=== PATIENT | male | born 1960 | race African-American/Black ===

== ENCOUNTER 2019-05-28 12:54 | Emergency (ER) | payer MEDICARE, MEDICAID ==
[~2019-05-28] VITALS: Ht 172.7 cm; Wt 114.7 kg
[~2019-05-28 12:54] MED LIST: AMLO5TAB9 PO; CETI10TA17 PO; IBUP-1780 PO; MELO15TA39 PO; OXYC15TA79 PO; OXYC60TA7 PO; PANT40TA2 PO; SUCR1TAB36 PO
[2019-05-28] MEDS ORDERED: KETOROLAC 60 MG/2 ML VIAL IM ONE (13:30)
--- NOTE | 2019-05-28 13:37 | ED Lower Extremity ---
General Chief Complaint: Lower Extremity Stated Complaint: LT LEG PAIN - FELL ON ICE LAST WK Nursing Triage Note: Patient presents to the ED from Walk in clinic with c/o left thigh pain. States that he was chasing his dog last Thursday and slipped on the ice and snow causing him to do the splits. He reports that the pain is not being controlled with his regular pain medications and it is swollen. The walk in clinic sent the patient for further evaluation. Nursing Sepsis Screen: No Definite Risk History of Present Illness Date Seen by Provider: May 28, 2019 Time Seen by Provider: 13:10 Initial Comments 59-year-old -Maur[place] male presents to the emergency room after being transferred from the acute care urgent care clinic. Patient reports that he slipped and fell doing the splits one week ago last Thursday. He has been able to ambulate since that time but states that his left thigh posterior aspect has become more and more sore and swollen. Patient on examination had negative Homans bilaterally. He does have pain in the hamstring muscles. Patient has a history of chronic low back and foot pain. He also has arthritis. Currently the patient is taking oxycodone 15 mg twice a day for breakthrough pain and OxyContin 60 mg twice a day for a total dose of 150 mg of oxycodone per day. This would be equivalent with 225 mg of morphine . Patient admits to Dr. Macdonald is providing him with pain care. He has a pain agreement with Dr. Macdonald and understands he should not receive any opioids from other people. Patient states he has a regularly scheduled colonoscopy next Thursday. I did offer Toradol for this patient has taken Motrin in the past without difficulty. Patient has given informed consent for diagnostic and therapeutic services. Examination was consistent with a hamstring pull he will also start using ice bottles and ice massage on the posterior aspect of the left thigh. Patient denies any history of cardiovascular ischemic heart disease pulmonary GI or renal disease. Vital signs reveals a temperature 36.7 pulse 80 and regular respirations 18 blood pressure 113/85 pulse ox 95 room air pain level VIII out of 10 in the posterior thigh height 5 foot 8 weight 114 kg . Onset: last week Severity: moderate Pain/Injury Location: left thigh (posterior aspect consistent with hamstring pull) Method of Injury: fell (reports he did the splits) Modifying Factors: Improves With Pain Medication (. He is currently taking 150 mg of oxycodone daily from Dr. Macdonald he understands he has a panic with Dr. Macdonald and should only receive adjustments of his opiates from Dr. Macdonald) Allergies and Home Medications Allergies Coded Allergies: morphine (Verified Allergy, Intermediate, ITCHING, 12/21/15) Home Medications Amlodipine Besylate 5 Mg Tablet, 5 MG PO DAILY, (Reported) Cetirizine HCl 10 Mg Tablet, 10 MG PO DAILY, (Reported) Ibuprofen 800 Mg Tablet, 800 MG PO Q8H PRN for PAIN, (Reported) Meloxicam 15 Mg Tablet, 15 MG PO DAILY, (Reported) Oxycodone HCl 60 Mg Tab.er.12h, 60 MG PO Q12H, (Reported) Oxycodone HCl 15 Mg Tablet, 15 MG PO PRN PRN for PAIN, (Reported) Pantoprazole Sodium 40 Mg Tablet.dr, 40 MG PO DAILY Prescribed by: DALLIN FLORES on 01/01/16 1350 Sucralfate 1 Gm Tablet, 1 GM PO QID Prescribed by: DALLIN FLORES on 01/01/16 1350 Patient Home Medication List Home Medication List Reviewed: Yes Review of Systems Constitutional: other (pain in the left hamstring area) EENTM: no symptoms reported Respiratory: no symptoms reported Cardiovascular: no symptoms reported Gastrointestinal: no symptoms reported Genitourinary: no symptoms reported Musculoskeletal: back pain, joint pain, muscle pain, muscle stiffness, muscle cramps (left hamstring area) Skin: no symptoms reported Psychiatric/Neurological: Anxiety, Depressed (has any pain not controlled by high doses of oxycodone) Past Ijgfqon-Trdgpr-Ajonne Hx Patient Social History Alcohol Use: Denies Use Recreational Drug Use: No Smoking Status: Never a Smoker 2nd Hand Smoke Exposure: No Recent Foreign Travel: No Contact w/Someone Who Travel: No Recent Infectious Disease Expo: No Recent Hopitalizations: No Physical Abuse: No Sexual Abuse: No Mistreated: No Fear: No Seasonal Allergies Seasonal Allergies: No Past Medical History Surgeries: Yes Orthopedic Respiratory: No Cardiac: Yes Hypertension Neurological: No Genitourinary: No Gastrointestinal: No Musculoskeletal: Yes Degenerate Disk Disease, Arthritis Endocrine: No HEENT: No Cancer: No Psychosocial: No Integumentary: No Blood Disorders: No Physical Exam Vital Signs Vital Signs - First Documented 05/28/19 13:05 Temp 36.7 Pulse 80 Resp 18 Pulse Ox 95 O2 Delivery Room Air Capillary Refill : Less Than 3 Seconds Height, Weight, BMI Height: 5'8.00" Weight: 226lbs. 0.0oz. [id number]; 38.00 BMI Method: General Appearance: WD/WN, moderate distress, obese HEENT: PERRL/EOMI Neck: non-tender Cardiovascular: regular rate, rhythm, no edema, no gallop, no JVD, no murmur Respiratory: chest non-tender, lungs clear, normal breath sounds, no respiratory distress, no accessory muscle use Gastrointestinal: normal bowel sounds, non tender, soft, no organomegaly Back: CVA tenderness (R), CVA tenderness (L), muscle spasm (bilateral lumbar areas) Hips: left hip soft tissue tenderness (patient has pain in the left hamstring area consistent with a hamstring strain and has been using a heating pad which is made the pain worse bilateral Homans is negative) Reflexes: 2+ knee (R), 2+ knee (L) Neurologic/Tendon: normal sensation Neurologic/Psychiatric: manager core II-XII nml as tested, no motor/sensory deficits, alert, normal mood/affect, oriented x 3 Skin: normal color, warm/dry Lymphatic: no adenopathy Progress/Results/Core Measures Results/Orders My Orders Orders - DOMINGA IBARRA DO Ketorolac Injection (Toradol Injection) (05/28/19 13:30) Vital Signs/I&O 05/28/19 13:05 Temp 36.7 Pulse 80 Resp 18 B/P (MAP) Pulse Ox 95 O2 Delivery Room Air Progress Progress Note : Time: 13:43 Progress Note Patient was seen in emergency room evaluation does not identify any exacerbation of loss of function of the lower extremity. He is able to walk but states that his current dose of oxycodone 150 mg daily is inadequate. Patient didn't canal is a he has a pain room with Dr. Macdonald and is supposed receive any adjustment in his pain medication from Dr. Macdonald I discussed the risks benefits and alternatives to a Toradol injection he did agree to 60 mg of Toradol IM. Patient will also stop using the heating pad and start using the ice massage and ice bottles to decrease the swelling in the hamstring. Minimal enlargement was identified on palpation patient does have full range of motion of the hip and knee no evidence of knee pathology Ligaments appear to be intact reflexes are normal 2+ over 4 Departure Communication (Admissions) The patient agrees to hydrate use ice for his posterior left thigh stretch and to discuss with Dr. Macdonald issues of hyperesthesia syndrome because of his high dose of oxycodone. Patient also has colonoscopy scheduled for next week. Impression Primary Impression: Hamstring muscle strain Additional Impression: Lumbago of lumbar region with sciatica Disposition: HOME, SELF-CARE Condition: Stable Departure-Patient Inst. Referrals: NORA MACDONALD MD (PCP/Family) Primary Care Physician Patient Instructions: Low Back Pain in Adults, Muscle Strain (DC) DOMINGA IBARRA DO May 28, 2019 13:37
[2019-05-28 14:11] VITALS: BP 113/85
[2019-05-29] MEDS ORDERED: SULF1TAB35 PO (12:05)
== END 2019-05-28 14:11 | disposition home or self-care (01) ==
LOC: EDUNIT# 12:54 → ER FS 12:56
DX: S76.312A Strain of muscle, fascia and tendon of the posterior muscle group at thigh level, left thigh, initial encounter (principal); M54.42 Lumbago with sciatica, left side; I10 Essential (primary) hypertension; Z88.5 Allergy status to narcotic agent; W00.0XXA Fall on same level due to ice and snow, initial encounter
CPT/HCPCS: 96372; 99284

== ENCOUNTER 2019-05-29 10:26 | Emergency (ER) | payer MEDICARE, MEDICAID ==
[~2019-05-29] VITALS: Ht 172.7 cm; Wt 111.3 kg
--- NOTE | 2019-05-29 11:38 | ED GU-Male ---
General Chief Complaint: - Urinary Stated Complaint: BLOODY URINE Nursing Triage Note: Patient presents to the ED with c/o of hematuria. States that when he went to the bathroom this morning he noticed blood in his urine and even passed a small blood clot. Was seen in the ED yesterday for left leg injury and given a toradol injection. Source: patient Exam Limitations: no limitations History of Present Illness Date Seen by Provider: May 29, 2019 Time Seen by Provider: 11:34 Initial Comments This 59-year-old male presents with hematuria. The patient noted small blood clot this morning when he went to the bathroom. Patient denies frequency, fever or chills, flank pain, easy bruising, hemoptysis, or epistaxis. Patient was seen in the emergency department yesterday for a muscle strain and was given an injection of Toradol IM. Allergies and Home Medications Allergies Coded Allergies: morphine (Verified Allergy, Intermediate, ITCHING, 12/21/15) Home Medications Amlodipine Besylate 5 Mg Tablet, 5 MG PO DAILY, (Reported) Cetirizine HCl 10 Mg Tablet, 10 MG PO DAILY, (Reported) Ibuprofen 800 Mg Tablet, 800 MG PO Q8H PRN for PAIN, (Reported) Meloxicam 15 Mg Tablet, 15 MG PO DAILY, (Reported) Oxycodone HCl 60 Mg Tab.er.12h, 60 MG PO Q12H, (Reported) Oxycodone HCl 15 Mg Tablet, 15 MG PO PRN PRN for PAIN, (Reported) Pantoprazole Sodium 40 Mg Tablet.dr, 40 MG PO DAILY Prescribed by: DALLIN FLORES on 01/01/16 1350 Sucralfate 1 Gm Tablet, 1 GM PO QID Prescribed by: DALLIN FLORES on 01/01/16 1350 Patient Home Medication List Home Medication List Reviewed: Yes Review of Systems Review of Systems Constitutional: No chills EENTM: no symptoms reported; No epistaxis Respiratory: No hemoptysis Cardiovascular: no symptoms reported; No chest pain Gastrointestinal: No hematemesis, No melena Genitourinary: see HPI; denies burning, denies flank pain; hematuria Musculoskeletal: No back pain Skin: other (patient denies bruising) Psychiatric/Neurological: No Symptoms Reported Endocrine: No Symptoms Reported Hematologic/Lymphatic: See HPI, Blood Clots (in the urine), Other (An injection of Toradol yesterday.) Past Vhsyqwl-Hkiysf-Gagrzd Hx Past Med/Social Hx: Reviewed Nursing Past Med/Soc Hx Patient Social History Alcohol Use: Denies Use Recreational Drug Use: No Smoking Status: Former Smoker 2nd Hand Smoke Exposure: No Recent Foreign Travel: No Contact w/Someone Who Travel: No Recent Infectious Disease Expo: No Recent Hopitalizations: No Physical Abuse: No Sexual Abuse: No Mistreated: No Fear: No Seasonal Allergies Seasonal Allergies: No Past Medical History Surgeries: Yes Orthopedic Respiratory: No Cardiac: Yes Hypertension Neurological: No Genitourinary: No Gastrointestinal: No Musculoskeletal: Yes Degenerate Disk Disease, Arthritis Endocrine: No HEENT: No Cancer: No Psychosocial: No Integumentary: No Blood Disorders: No Physical Exam Vital Signs Vital Signs - First Documented 05/29/19 10:32 Temp 36.1 Pulse 65 Resp 16 B/P (MAP) 160/94 (116) Pulse Ox 96 O2 Delivery Room Air Capillary Refill : Less Than 3 Seconds Height, Weight, BMI Height: 5'8.00" Weight: 226lbs. 0.0oz. 102.982839fy; 37.00 BMI Method: General Appearance: WD/WN, no apparent distress HEENT: normal ENT inspection Neck: normal inspection Cardiovascular: regular rate, rhythm Respiratory: lungs clear Gastrointestinal: normal bowel sounds Back: normal inspection Extremities: normal range of motion, normal inspection Neurologic/Psychiatric: no motor/sensory deficits, alert, normal mood/affect Skin: normal color, warm/dry; No ecchymosis Progress/Results/Core Measures Suspected Sepsis Recent Fever Within 48 Hours: No Infection Criteria Present: None New/Unexplained Altered Menta: No Sepsis Screen: No Definite Risk SIRS Temperature: Pulse: 65 Respiratory Rate: 16 Laboratory Tests 05/29/19 11:13: White Blood Count 5.8 Blood Pressure 160 /94 Mean: 116 Laboratory Tests 05/29/19 11:13: Creatinine 0.90, INR Comment 1.1, Platelet Count 259, Total Bilirubin 0.3 Results/Orders Lab Results Laboratory Tests Test 05/29/19 10:47 05/29/19 11:13 Range/Units Urine Color BROWN H Urine Clarity CLOUDY H Urine pH 6.5 5-9 Urine Specific [place] 1.025 H 1.016-1.022 Urine Protein 1+ H NEGATIVE Urine Glucose (UA) NEGATIVE NEGATIVE Urine Ketones NEGATIVE NEGATIVE Urine Nitrite NEGATIVE NEGATIVE Urine Bilirubin 1+ H NEGATIVE Urine Urobilinogen 1.0 < = 1.0 MG/DL Urine Leukocyte Esterase NEGATIVE NEGATIVE Urine RBC (Auto) 3+ H NEGATIVE Urine RBC TNTC H /HPF Urine WBC RARE /HPF Urine Squamous Epithelial Cells RARE /HPF Urine Crystals NONE /LPF Urine Bacteria NEGATIVE /HPF Urine Casts NONE /LPF Urine Mucus SMALL H /LPF Urine Culture Indicated NO White Blood Count 5.8 4.3-11.0 10^3/uL Red Blood Count 4.37 4.35-5.85 10^6/uL Hemoglobin 12.9 L 13.3-17.7 G/DL Hematocrit 39 L 40-54 % Mean Corpuscular Volume 89 80-99 FL Mean Corpuscular Hemoglobin 30 25-34 PG Mean Corpuscular Hemoglobin Concent 33 32-36 G/DL Red Cell Distribution Width 12.2 10.0-14.5 % Platelet Count 259 130-400 10^3/uL Mean Platelet Volume 9.5 7.4-10.4 FL Neutrophils (%) (Auto) 52 42-75 % Lymphocytes (%) (Auto) 32 12-44 % Monocytes (%) (Auto) 11 0-12 % Eosinophils (%) (Auto) 4 0-10 % Basophils (%) (Auto) 1 0-10 % Neutrophils # (Auto) 3.0 1.8-7.8 X 10^3 Lymphocytes # (Auto) 1.9 1.0-4.0 X 10^3 Monocytes # (Auto) 0.7 0.0-1.0 X 10^3 Eosinophils # (Auto) 0.2 0.0-0.3 10^3/uL Basophils # (Auto) 0.1 0.0-0.1 10^3/uL Prothrombin Time 14.2 12.2-14.7 SEC INR Comment 1.1 0.8-1.4 Sodium Level 141 135-145 MMOL/L Potassium Level 4.0 3.6-5.0 MMOL/L Chloride Level 106 98-107 MMOL/L Carbon Dioxide Level 25 21-32 MMOL/L Anion Gap 10 5-14 MMOL/L Blood Urea Nitrogen 11 7-18 MG/DL Creatinine 0.90 0.60-1.30 MG/DL Estimat Glomerular Filtration Rate > 60 BUN/Creatinine Ratio 12 Glucose Level 94 70-105 MG/DL Calcium Level 8.8 8.5-10.1 MG/DL Corrected Calcium 8.7 8.5-10.1 MG/DL Total Bilirubin 0.3 0.1-1.0 MG/DL Aspartate Amino Transf (AST/SGOT) 19 5-34 U/L Alanine Aminotransferase (ALT/SGPT) 19 0-55 U/L Alkaline Phosphatase 78 40-136 U/L Total Protein 7.0 6.4-8.2 GM/DL Albumin 4.1 3.2-4.5 GM/DL My Orders Orders - RUY DAMON MD Cbc With Automated Diff (05/29/19 11:03) Comprehensive Metabolic Panel (05/29/19 11:03) Protime With Inr (05/29/19 11:03) Ua Culture If Indicated (05/29/19 11:03) Vital Signs/I&O 05/29/19 10:32 Temp 36.1 Pulse 65 Resp 16 B/P (MAP) 160/94 (116) Pulse Ox 96 O2 Delivery Room Air Capillary Refill : Less Than 3 Seconds Blood Pressure Mean: 116 Progress Note : Time: 12:01 Progress Note Patient's urinalysis demonstrated blood in the urine. I discussed findings with the patient. I asked that he follow-up closely with urology. I placed the patient on Bactrim DS for 5 days until he has followed up with urology. I invited him to return emergency Department any further problems or questions. Departure Impression Primary Impression: Hematuria Qualified Codes: R31.9 - Hematuria, unspecified Disposition: HOME, SELF-CARE Condition: Unchanged Departure-Patient Inst. Decision time for Depature: 12:03 Referrals: NORA MACDONALD MD (PCP) Primary Care Physician Patient Instructions: DR. HOLLOWAY-CELIA Add. Discharge Instructions: Bactrim DS as prescribed. Follow-up with Dr. Holloway by calling the office in the morning. Return if any problems or questions. All discharge instructions reviewed with patient and/or family. Voiced understanding. Scripts Sulfamethoxazole/Trimethoprim (Bactrim Ds Tablet) 1 Each Tablet 1 EACH PO BID for 7 Days, TAB Prov: RUY DAMON MD 05/29/19 RUY DAMON MD May 29, 2019 11:38
[2019-05-29 11:51] LABS: CLARITY,URINE CLOUDY; COLOR,URINE BROWN; GLUCOSE, URINE (UA) NEGATIVE (NEGATIVE); KETONES,URINE NEGATIVE (NEGATIVE); NITRITE,URINE NEGATIVE (NEGATIVE); PH,URINE 6.5 (5-9); PROTEIN,URINE 1+ (NEGATIVE)
[2019-05-29 11:52] LABS: BACTERIA,URINE NEGATIVE /HPF; BILIRUBIN,URINE 1+ (NEGATIVE); LEUKOCYTE ESTERASE ,URINE NEGATIVE (NEGATIVE); RBC,URINE TNTC /HPF; SQUAMOUS EPITHELIAL CELL,UR RARE /HPF; WBC,URINE RARE /HPF
[2019-05-29 11:53] LABS: HEMATOCRIT 39 % (40-54); HEMOGLOBIN 12.9 G/DL (13.3-17.7); MEAN CORPUSCULAR HEMOGLOBIN 30 PG (25-34); MEAN CORPUSCULAR HGB CONC 33 G/DL (32-36); MEAN CORPUSCULAR VOLUME 89 FL (80-99); MEAN PLATELET VOLUME 9.5 FL (7.4-10.4); PLATELET COUNT 259 10^3/uL (130-400); RED CELL DISTRIBUTION WIDTH 12.2 % (10.0-14.5); WHITE BLOOD COUNT 5.8 10^3/uL (4.3-11.0)
[2019-05-29 11:54] LABS: BASOPHILS # (AUTO) 0.1 10^3/uL (0.0-0.1); BASOPHILS % (AUTO) 1 % (0-10); EOSINOPHILS # (AUTO) 0.2 10^3/uL (0.0-0.3); EOSINOPHILS % (AUTO) 4 % (0-10); INR 1.1 (0.8-1.4); LYMPHOCYTES # (AUTO) 1.9 X 10^3 (1.0-4.0); LYMPHOCYTES % (AUTO) 32 % (12-44); MONOCYTES # (AUTO) 0.7 X 10^3 (0.0-1.0); MONOCYTES % (AUTO) 11 % (0-12); NEUTROPHILS % (AUTO) 52 % (42-75); PROTHROMBIN TIME PATIENT 14.2 SEC (12.2-14.7); SODIUM 141 MMOL/L (135-145)
[2019-05-29 11:55] LABS: ALANINE AMINOTRANSFERASE 19 U/L (0-55); ALBUMIN 4.1 GM/DL (3.2-4.5); ALKALINE PHOSPHATASE 78 U/L (40-136); BILIRUBIN,TOTAL 0.3 MG/DL (0.1-1.0); BUN/CREATININE RATIO 12; CALCIUM 8.8 MG/DL (8.5-10.1); CARBON DIOXIDE 25 MMOL/L (21-32); CHLORIDE 106 MMOL/L (98-107); GFR ESTIMATED > 60; GLUCOSE 94 MG/DL (70-105)
[2019-05-29] MEDS ORDERED: SULF1TAB35 PO (12:05)
[2019-05-29 12:12] VITALS: BP 160/94
== END 2019-05-29 12:12 | disposition home or self-care (01) ==
LOC: EDUNIT# 10:26 → ER FS 10:27
DX: R31.9 Hematuria, unspecified (principal); I10 Essential (primary) hypertension; Z88.5 Allergy status to narcotic agent; Z87.891 Personal history of nicotine dependence
CPT/HCPCS: 36415; 80053; 81000; 85025; 85610

== ENCOUNTER → 2019-06-23 | Outpatient (CLI) | payer MEDICARE, MEDICAID ==
[~2019-06-23] MED LIST changes: +SULF1TAB35 PO
--- NOTE | 2019-06-23 13:50 | Diagnostic Imaging Report ---
CT ABDOMEN/PELVIS WO TECHNIQUE: Unenhanced CT imaging of the abdomen and pelvis was performed. 2-D reformats are created and submitted for interpretation. Automatic exposure controls were utilized to optimize patient dose. INDICATION: Gross hematuria. COMPARISON: None available. FINDINGS: Evaluation of the abdominal viscera is mildly limited without contrast. Lower chest: The lung bases are clear. No pericardial or pleural effusion. Peritoneum: No free intraperitoneal air or fluid. Liver and biliary system: Unenhanced liver is normal. Hyperdensities within the gallbladder are likely due to cholelithiasis. No CT features of acute cholecystitis. No biliary duct dilatation. Spleen and Pancreas: Spleen is normal. Unenhanced pancreas is grossly normal. Adrenals: Normal. tract: No renal or ureteral calculi. No obstructive uropathy. There is a 3.2 x 3.2 cm simple cyst in the upper pole of the left kidney. Urinary bladder is normally filled without wall thickening. The prostate is not enlarged. GI tract: Small sliding-type hiatal hernia. The stomach is predominantly decompressed, limiting assessment. No bowel obstruction. No pericolonic inflammatory changes. Normal appendix. Vasculature and Lymph nodes: Normal caliber aorta. No abdominal or pelvic lymphadenopathy. Musculoskeletal: No concerning osseous lesion. IMPRESSION: 1. No urinary tract calculi or obstructive uropathy. 2. Simple-appearing left renal cyst. No concerning renal lesion by noncontrast CT. Dictated by: Dictated on workstation # [id number]
== END ==
LOC: RAD FS 13:19
PROVIDERS: ATTEND Urology
DX: N28.1 Cyst of kidney, acquired (principal); R31.0 Gross hematuria
CPT/HCPCS: 74176

== ENCOUNTER 2019-08-21 20:19 | Emergency (ER) | payer MEDICARE, MEDICAID ==
[~2019-08-21] VITALS: Ht 172.7 cm; Wt 111.3 kg
[~2019-08-21 20:19] MED LIST changes: +OXYC-525 PO; -OXYC15TA79 PO
--- OUTSIDE RECORDS SUMMARY | 2019-08-21 20:25 | XMS REPORT | Encounter Summary ---
Author Author [facility] Organization [facility] Address Unknown Phone Unavailable Care Team Providers Care New Grad Rn Name Role Phone Geovanny Iris MOLINA Unavailable Myriam Sigala RN Unavailable Unavailable Monique Headley Unavailable Unavailable [place] Unavailable Unavailable Andria JimenezD Unavailable Unavailable Rosalinda Morillo Unavailable Unavailable Felicia Francis MA Unavailable Unavailable Kerry Siddiqui RN Unavailable Unavailable Jessica Velazquez Unavailable Unavailable Suzi Leung Unavailable Unavailable Emmie Muñoz Unavailable Unavailable Varinder Yeung MD PCP Reason for Visit * Reason Comments Appointment Request Cancellation Encounter Details Care Team Description Date Type Department Iris Small APRN [address] [address] Appointment Request (Cancellation) 08/17/2019 Telephone [facility] [address] [id number] Social History Date Tobacco Use Types Packs/Day Years Used Quit: 02/28/1997 Former Smoker Cigarettes 1 15 Smokeless Tobacco: Never Used Drinks/Week oz/Week Comments Alcohol Use 0 Standard drinks or equivalent 0.0 dry since 1997 No Sex Assigned at Date Recorded Not on file Industry Job Start Date Occupation Not on file Not on file Not on file Travel End Travel History Travel Start No recent travel history available. documented as of this encounter Functional Status Date of Assessment Functional Status Response 11/04/2018 Does the patient have a hearing impairment: No 11/04/2018 Does the patient have a visual impairment: No 11/04/2018 Does the patient have impaired ambulation: No 11/04/2018 Does the patient have an activity of daily living No (ADL) impairment: 11/04/2018 Does the patient have an instrumental activity of No daily living (IADL) impairment: Date of Assessment Cognitive Status Response 11/04/2018 Does the patient have a cognitive impairment: No documented as of this encounter Miscellaneous Notes * Telephone Encounter - Kathy Mcintosh - 08/18/2019 10:21 AM CDT Called pt. No answer. Left a detailed voicemail message advising our clinic is c ancelling all non-urgent appts for patient safety due to the coronavirus. Advise d we are only scheduling telehealth appt and asked for a return call to kathy baez his f/u appt with Iris via Zoom. Left my name and phone number. * Telephone Encounter - Karlee Lemons - 08/17/2019 12:41 PM CDT Attempted to call pt to notify that 08/29 appt with Iris Small has been canceled. Pt's phone rang several times then hung up without going to . Was unable to leave a message. documented in this encounter Plan of Treatment Not on filedocumented as of this encounter Goals Goal Patient Associated Recent Progress Patient-Stat Aut hor Goal Type Problems ed? Reduce calorie intake to 2000 Diet No Graciela Bah, calories per day RN documented as of this encounter Visit Diagnoses Not on filedocumented in this encounter
--- OUTSIDE RECORDS SUMMARY | 2019-08-21 20:25 | XMS REPORT | Clinical Summary ---
Author Author [facility] Organization [facility] Address Unknown Phone Unavailable Care Team Providers Care Student Worker Name Role Phone Iris Small TRACY Unavailable Myriam Sigala RN Unavailable Unavailable Monique Headley Unavailable Unavailable [place]acy [place] Unavailable Unavailable Andria JimenezD Unavailable Unavailable Rosalinda Morillo Unavailable Unavailable Felicia Francis MA Unavailable Unavailable Kerry Siddiqui RN Unavailable Unavailable Jessica Velazquez Unavailable Unavailable Suzi Leung Unavailable Unavailable Emmie Muñoz Unavailable Unavailable Varinder Yeung MD PCP Source Comments Some departments are not documenting in the electronic medical record. If you d o not see the information that you expected, contact Release of Information in [facility] Information Management department at [phone] for further assistan ce in locating additional records.[facility] Allergies Comments Active Allergy Reactions Severity Noted Date Hydrocodone ITCHING Low 07/22/2018 Ibuprofen STOMACH Low 07/13/2018 UPSET, NAUSEA AND VOMITING Morphine NAUSEA AND Low 02/28/2015 VOMITING, ITCHING liver issues Acetaminophen SEE COMMENTS Low 07/13/2018 Medications End Date Status Medication Sig Dispensed Refills Start Date Active pantoprazole DR Take 40 mg by 0 (PROTONIX) 40 mg tablet mouth daily as needed. Active oxyCODONE (OXYCONTIN) 60 Take 60 mg by 0 mg tablet mouth every 12 hours Active oxyCODONE SR (OXYCONTIN) Take 15 mg by 0 15 mg tablet mouth twice daily as needed for Pain Active amLODIPine (NORVASC) 5 mg Take 5 mg by 0 tablet mouth daily. Active vitamins, B complex tab Take 1 tablet 0 by mouth daily. Active cholecalciferol (VITAMIN Take 1,000 0 D-3) 1,000 units tablet Units by mouth daily. Active ascorbic acid (VITAMIN C) Take 500 mg 0 500 mg tablet by mouth daily. Active amoxicillin/K clavulanate 0 (AUGMENTIN) 875/125 mg 9 tablet Active oxyCODONE (ROXICODONE, Take one 12 tablet 0 OXY-IR) 5 mg tablet tablet to 9 three tablets by mouth every 3 hours as needed Active Problems Problem Noted Date H/O partial thyroidectomy 11/03/2018 Hepatitis C virus infection without hepatic coma Essential hypertension 03/28/2015 Obstructive sleep apnea syndrome 03/28/2015 Chronic pain due to injury 03/28/2015 Resolved Problems Problem Noted Date Resolved Date Thyroid nodule 07/15/2018 11/17/2018 Encounters Care Team Description Date Type Specialty Iris Small APRN Appointment Request (Cancellation) 08/17/2019 Telephone Hepatology Iris Small APRN Other 06/06/2019 Telephone Hepatology from Last 3 Months Immunizations Name Administration Dates Next Due Flu Vaccine Quadrivalent 06/13/2015 =>3 Yo (Preservative Free) HEP A/HEP B Combined 09/17/2015 Vaccine HEPATITIS B vaccine, 04/27/2015 unspecified (Historical) Hepatitis B Vaccine Adult 07/03/2016, 03/28/2015 3 Dose IM Family History Medical History Relation Name Comments Depression Brother Arthritis-osteo Mother Arthritis-rheumatoid Mother Cancer Mother Depression Mother Diabetes Mother Hypertension Mother Thyroid Disease Mother Arthritis-osteo Sister Arthritis-rheumatoid Sister Depression Sister Hypertension Sister Relation Name Status Comments Brother Alive Mother Sister Alive Social History Date Tobacco Use Types Packs/Day Years Used Quit: 02/28/1997 Former Smoker Cigarettes 1 15 Smokeless Tobacco: Never Used Tobacco Cessation: Counseling Given: Yes Drinks/Week oz/Week Comments Alcohol Use 0 Standard drinks or equivalent 0.0 dry since 1997 No Sex Assigned at Date Recorded Not on file Industry Job Start Date Occupation Not on file Not on file Not on file Travel End Travel History Travel Start No recent travel history available. Last Filed Vital Signs Reading Time Taken Comments Vital Sign 135/98 11/16/2018 3:40 PM CDT Blood Pressure 73 11/16/2018 3:40 PM CDT Pulse 37 C (98.6 F) 11/16/2018 3:40 PM CDT Temperature 18 11/16/2018 3:40 PM CDT Respiratory Rate 99% 11/16/2018 3:40 PM CDT Oxygen Saturation - - Inhaled Oxygen Concentration 106.7 kg (235 lb 3.2 oz) 11/16/2018 3:40 PM CDT Weight 172 cm (5' 7.72") 11/16/2018 3:40 PM CDT Height 36.06 11/16/2018 3:40 PM CDT Body Mass Index Plan of Treatment Health Maintenance Due Date Last Done Comments MEDICARE ANNUAL WELLNESS 1959 VISIT DTAP/TDAP VACCINES (1 - 1970 Tdap) PHYSICAL (COMPREHENSIVE) 1977 EXAM COLORECTAL CANCER 2009 SCREENING SHINGLES RECOMBINANT 2009 VACCINE (1 of 2) INFLUENZA VACCINE 12/10/2019 06/13/2015 HIV SCREENING Completed 02/28/2015 Goals Goal Patient Associated Recent Progress Patient-Stat Aut hor Goal Type Problems ed? 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
--- OUTSIDE RECORDS SUMMARY | 2019-08-21 20:25 | XMS REPORT | Encounter Summary ---
Author Author [facility] Organization [facility] Address Unknown Phone Unavailable Care Team Providers Care Social Sciences Lecturer Name Role Phone Iris Small APRN Unavailable Myriam Sigala RN Unavailable Unavailable Monique Headley Unavailable Unavailable [place] Unavailable Unavailable Andria JimenezD Unavailable Unavailable Rosalinda Morillo Unavailable Unavailable Felicia Francis MA Unavailable Unavailable Kerry Siddiqui RN Unavailable Unavailable Jessica Velazquez Unavailable Unavailable Suzi Leung Unavailable Unavailable Emmie Muñoz Unavailable Unavailable Varinder Yeung MD PCP Reason for Visit * Reason Comments Other Encounter Details Care Team Description Date Type Department Iris Small APRN [address] [address] Other 06/06/2019 Telephone [facility] [address] [id number] Social History Date Tobacco Use [...] encounter Miscellaneous Notes * Telephone Encounter - Roman Baeza RN - 06/06/2019 3:58 PM 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 He wanted to know if this was saf e. I advised him to follow up with the prescriber of this medication and or the filling pharmacist. He does not have a follow up appointment scheduled to see Iris Small at this susy e but would like to make a follow up. His last visit was December 08, 2016 He left last office visit without being seen. He had questions about getting a colonoscopy at he was given the phone number to the GI lab so his PCP could make the referral to . GER ADVERTISING documented in this encounter Plan of Treatment Not on filedocumented as of this encounter Goals Goal Patient Associated Recent Progress Patient-Stat Aut hor Goal Type Problems ed? Reduce calorie intake to 2000 Diet No Graciela Bah, calories per day RN documented as of this encounter Visit Diagnoses Not on filedocumented in this encounter
--- OUTSIDE RECORDS SUMMARY | 2019-08-21 20:26 | XMS REPORT ---
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 Name Role Phone NORA MACDONALD Unavailable PCP, OUTSIDE Unavailable Unavailable NORA MACDONALD Unavailable Unavailable ALEK MENDES DO Unavailable Unavailable DOMINGA IBARRA DO Unavailable Unavailable BRANDON ESQUIVEL APRN Unavailable Unavailable NORA MACDONALD PCP MARISOL RANKIN, RUY Martinez Unavailable Unavailable JEWEL RANKIN, KUSH Hanks Unavailable Unavailable JULIOCESAR HARRIS Unavailable Allergies The data below is from unstructured sources No Information Medications Medication Ingredient Drug Dose Dates Status Sig Sig Care Class(es) (Normalized) (Original) Provid er sulfamethox Sulfamethox Dihydrofola 05-29-19 Active no Sulfa methoxa no azole 800 azole / te 20 information zole/Trimeth n gege mg / Trimethopri Reductase oprim Active (no trimethopri m Inhibitor 1 ORAL Twice phone) m 160 mg Antibacteri A Day 7 oral tablet may (1 source.) Sulfonamide 2019 Antimicrobi 12:05pm al Problems Active Problems Problem Normalized Date of Normalized Normalized Provider Fac ility Classification Problem(s) Problem Problem Problem Sta tus Onset/Resoluti Duration on Other upper Acute frontal Episodic Active JULIOCESAR HARRIS Com munity [facility] [facility] infections (1 unspecified of [place] source.) Translations: [place] (45969) [ - Acute non-recurrent frontal sinusitis J01.10] Inflammatory Acute Episodic Active JULIOCESAR Floresi ty conditions of prostatitis [address] [facility] male genital Translations: of [place] organs (1 [ - Acute [place] (28197) source.) prostatitis N41.0] Allergic Allergy status 06-17-2019 - Episodic Active DOMINGA ROMERO [facility] Via reactions (10 to narcotic , DO [place] sources.) agent status [facility] [place] (97906) Chronic Bronchitis, Episodic Active [facility] ty obstructive not specified [address] [place] [address] pulmonary as acute or of [facility] disease and chronic [place] (27976) bronchiectasis Translations: (1 source.) [ - Bronchitis, not specified as acute or chronic J40] Hepatitis (2 Chronic Chronic Active [facility] sources.) hepatitis C [address] [place] [address] Translations: of [facility] [ Hep C w/o [place] (99330) coma, chronic, - Hep C w/o coma, chronic B18.2] Residual Chronic pain 09-21-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 Active [facility] Community codes; Translations: [address] [place] [address] unclassified [ Encounter of [facility] (2 sources.) for chronic [place] (80529) pain management, Other chronic pain] Other nervous Chronic pain 03-28-2015 - Chronic Active [facility] system due to injury [address] [place] [address] disorders (1 Translations: of [facility] source.) [ Chronic pain [place] (04273) due to injury] Disorders of Chronic Chronic Active [facility] teeth and jaw periodontitis, [address] [place] [address] (1 source.) unspecified of [facility] Translations: [place] (28606) [ - Periodontitis K05.30] Other upper Chronic 12-04-2017 - Chronic Active [facility] respiratory rhinitis [address] [place] [address] disease (1 Translations: of [facility] source.) [ Chronic [place] (80784) rhinitis] Other diseases Cyst of 06-24-2019 - Episodic Active KUSH MAO , [facility] Via of kidney and kidneyMD Workman ureters (4 acquired Hospital - sources.) [place] (94471) Spondylosis; 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 [address] [place] [address] disc intervertebral of [facility] disorders; disc [place] (63298) other back Translations: problems (1 [ Degeneration source.) of lumbar or lumbosacral intervertebral disc] Disorders of Dental caries, Episodic Active [facility] ommunity teeth and jaw unspecified [address] [place] [address] (3 sources.) Translations: of [facility] [ - Caries [place] (89489) K02.9] Gastroduodenal Duodenal ulcer 10-22-2015 - Chronic Active RONEN SEY HARRIS Community ulcer (except disease [id number] [place] [address] Center hemorrhage) (1 Translations: of [place] source.) [ Duodenal [place] (72424) ulcer] Immunizations Encounter for Episodic Active JULIOCESAR HARRIS [place] [facility] and screening immunization [address] [place] [address] for infectious Translations: of [facility] disease (1 [ - Encounter [place] (72178) source.) for immunization Z23] Other Encounter for 06-22-2019 - Episodic Active ALEK WILLS , [facility] Via screening for screening for DO [place] suspected malignant Hospital - conditions neoplasm of [place] (not mental colon (57986) disorders or Translations: infectious [ - Screening disease) (7 for colon sources.) cancer Z12.11, - Screening for malignant neoplasm of colon Z12.11] Esophageal Esophagitis, 06-22-2019 - Episodic Active ALEK NORTH , [facility] Via disorders (5 unspecified DO [place] sources.) [facility] - [place] (31736) Essential Essential 02-19-2016 - Chronic Active DOMINGA Vasquez [facility] Via hypertension (primary) , DO [place] (15 sources.) hypertension Hospital - Translations: [place] [ Essential (46166) hypertension, HTN (hypertension) , benign, Essential hypertension, - HTN (hypertension) , benign I10, - Essential hypertension I10] External cause Fall on same 06-17-2019 - Episodic Active KVNG IBARRA [facility] Via codes: Fall (5 level due to , DO [place] sources.) ice and snow, Hospital - initial [place] encounter (07722) Gastritis and Gastritis, 06-22-2019 - Episodic Active ALEK WHITTINGTON , [facility] Via duodenitis (5 unspecified, DO [place] sources.) without Hospital - bleeding [place] (08918) Esophageal Gastroesophage Chronic Active JULIOCESAR HARRIS [facility] munity disorders (2 al reflux 11870 [facility] Center sources.) disease of [place] without [place] (59061) esophagitis Translations: [ GERD without esophagitis, - GERD without esophagitis K21.9] Genitourinary Hematuria, 06-22-2019 - Episodic Active RUY ESPINOSA , [facility] Via symptoms and unspecified MD Workman ill-defined Translations: Hospital - conditions (17 [ GROSS [place] sources.) HEMATURIA, - (00039) Hematuria, unspecified type R31.9, - Urinary frequency R35.0] Residual High risk Episodic Active JULIOCESAR HARRIS On License [facility] codes; heterosexual [address] [place] [address] unclassified behavior of [facility] (1 source.) Translations: [place] (83682) [ - High risk sexual behavior, unspecified type Z72.51] Spondylosis; Lumbago with 06-17-2019 - Episodic Active DOMINGA STACEY [facility] Via intervertebral sciatica, left , DO [place] disc side Hospital - disorders; Translations: [place] other back [ Low back (84461) problems (10 pain, - Low sources.) back pain M54.5] Other Morbid obesity 12-04-2017 - Chronic Active JULIOCESAR PENA [facility] Community nutritional; Translations: [address] [place] [address] endocrine; and [ Severe of [facility] metabolic obesity (BMI [place] (19423) disorders (1 35.0-39.9) source.) with comorbidity] Other nervous Nerve root 02-21-2010 - Chronic Active JULIOCESAR Salazar [facility] system disorder [address] [place] [address] disorders (1 Translations: of [facility] source.) [ [place] (01318) Radiculopathy of leg] Thyroid Non-toxic 12-18-2016 - Chronic Active JULIOCESAR HARRIS On License [facility] disorders ([address] [place] [address] Center sources.) goiter of [facility] Translations: [place] (87128) [ Solitary nodule of right lobe of thyroid, Nontoxic uninodular goiter, - 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] Residual Obstructive 06-22-2019 - Chronic Active BRANDON ESQUIVEL [facility] Via codes; sleep apnea HAIRPIECE STYLIST [place] unclassified (adult)([facility] Hospital - (3 sources.) derek) [place] (39574) Residual Obstructive 12-09-2014 - Chronic Active JULIOCESAR HARRIS On License Of [facility] codes; sleep apnea [address] [place] [address] unclassified syndrome of [facility] (1 source.) Translations: [place] (38521) [ RENU on CPAP] Other nervous Other chronic Chronic Active JULIOCESAR HARRIS ommunity system pain [address] [place] [address] Center disorders (3 Translations: of [facility] sources.) [ - Other [place] (48366) chronic pain G89.29] Diseases of Other lesions Episodic Active JULIOCESAR HARRIS Com munity mouth; of oral mucosa [address] [place], [place] [address]e excluding Translations: of [facility] dental (1 [ - Mouth pain [place] (41099) source.) K13.79] Other Other long Episodic Active JULIOCESAR HARRIS Communit y aftercare (7 term (current) [address] [place] [address] sources.) drug therapy of [facility] Translations: [place] (58420) [ - High risk medication use Z79.899] Other Other Episodic Active [facility] connective specified soft [address] [place] [address] tissue disease tissue of [facility] (1 source.) disorders [place] (23076) Translations: [ - Right leg swelling M79.89] Other Pain in left 06-17-2019 - Episodic Active DOMINGA GONGORA [facility] Via connective leg , DO [facility] tissue disease Hospital - (5 sources.) [place] (94371) Screening and Personal 06-22-2019 - Episodic Active RUY ENAMORADO , [facility] Via history of history of [facility] - and substance dependence [place] abuse codes (5 (44476) sources.) Other male Personal Episodic Active [facility] genital history of [address] [place] [address] disorders (2 other diseases of [facility] sources.) of male [place] (86622) genital organs Translations: [ - History of BPH Z87.438] Sprains and Strain of 06-17-2019 - Episodic Active DOMINGA GONGORA [facility] Via strains (5 muscle, fascia , DO [place] sources.) and tendon of Hospital - the posterior [place] muscle group (09388) at thigh level, left thigh, initial encounter Past or Other Problems Problem Normalized Date of Normalized Normalized Provider Fac ility Classification Problem(s) Problem Problem Problem Sta tus Onset/Resoluti Duration on Other lower Cough 05-26-2016 - Episodic Completed [facility] respiratory Translations: [address] [place] [address] disease (1 [ Cough] of [facility] source.) [place] (36854) Abdominal Diaphragmatic 03-26-2010 - Episodic Completed ALEK WHITTINGTON [facility] Via hernia (6 hernia without DO [place] sources.) obstruction or Hospital - gangrene [place] Translations: (96643) [ Hiatal hernia, Hiatal hernia] Abdominal pain Left flank 07-15-2016 - Episodic Completed [facility] (1 source.) pain [address] [place] [address] Center Translations: of [facility] [place] [ Left flank [place] (33725) pain] Lymphadenitis Lymphadenopath 11-03-2016 - Episodic Completed [facility] (1 source.) y [address] [place] [address] Translations: of [facility] [place] [facility] [ Glands [place] (40663) swollen] Other injuries 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-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 Completed JORGE [facility] and conditions fracture [address] [place] [address] due to Translations: of [facility] external [ Closed [place] (68872) causes (1 displaced source.) fracture of navicular bone of foot with nonunion] Other Spasm 03-25-2017 - Episodic Completed [facility] connective Translations: [address] [place] [address] tissue disease [ Muscle of [facility] (1 source.) spasms of [place] (28585) neck] Hepatitis (1 Viral 11-23-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 [facility] hepatitis C [address] [place] [address] Translations: [facility] [ Hepatitis C [place] (01987) virus infection without hepatic coma] Procedures The data below is from unstructured sourcesNo procedure information available.No procedure information available.No procedure information available. No Known procedures No Known procedures Immunizations Normalized Immunization Date Notes Care Provider Facili ty Immunization hepatitis A and 09-17-2015 no information no name Not Katelyn ilable hepatitis B vaccine (78087) hepatitis B vaccine, 07-03-2016 no information no name No t Available adult dosage (40027) influenza, seasonal, 02-02-2019 no information no name [facility] injectable Center [facility] (82250) tetanus and 03-08-2005 no information no name [facility] diphtheria toxoids, [facility] adsorbed, - [facility] preservative free, (00816) for adult use (2 Lf of tetanus toxoid and 2 Lf of diphtheria toxoid) tetanus and 02-07-1993 no information no name [facility] diphtheria toxoids, [facility] adsorbed, - [facility] preservative free, (47900) for adult use (2 Lf of tetanus toxoid and 2 Lf of diphtheria toxoid) Results Test Name Value Interpretation Reference Range Date Time Fa cility (Normalized) (Normalized) (Medline Reference) No panel information on null BLO no information (no code) [facility] (27746) KET 01/11/19~clear~jacquie (no code) [facility] k [facility]~none~neg~ [facility] neg~neg (96279) KET 03/10/2020~clear (no code) [facility] ~yellow~none~neg [facility] ~neg~neg [facility] (09568) EPI neg~trace (no code) [facility] (08109) EPI neg~neg (no code) [facility] (54145) Lot # [id number] (no code) [facility] (52542) Lot # [id number] (no code) [facility] (50521) Lot # [id number] (no code) [facility] (49070) pH (Bld) 5.5 [pH] (no code) 7.38 - 7.42 [pH] [facility] (88875) Protein (U) no information (no code) 0 - 20 mg/dL [facility] [Mass/Vol] [facility] () SG 1.025 (no code) [facility] () SG 1.030 (no code) [facility] (05192) TCA COG (no code) [facility] 02-10~02/08/2020 [facility] ~+~negative~nega [facility] tive~negative~ne (88620) gative~negative~ negative~negativ e~negative~posit matthew~negative~neg ative~negative~n egative TCA COG (no code) [facility] 02-10~02/08/2020~ [facility] +~negative~negat [facility] matthew~negative~neg (24318) ative~negative~n egative~negative ~negative~POSITI VE~negative~nega tive~negative~ne gative TCA 02/08/2020~valid (no code) [facility] lth ~neg~neg~neg~neg [facility] ~positive~neg~ne [facility] g~neg~positive~n (93987) eg~neg~neg~neg URO 2.0 (no code) [facility] (42178) URO 0.2 (no code) [facility] (18876) No panel information on 2019-05-26 Amphetamines Ql no information (N) [facility] (U) [facility] (69946) Barbiturates Ql no information (N) [facility] (U) [facility] (15463) Benzodiazepines no information (N) [facility] Ql (U) [facility] (97372) Benzoylecgonine no information (N) [facility] Ql (U) [facility] (33755) Codeine (U) no information (N) [facility] [Mass/Vol] [facility] (71580) COMMENT no information (no code) [facility] (84681) Creatinine (U) 185.8 mg/dL (N) [facility] [Mass/Vol] [facility] (65841) Drug screen CONSISTENT (N) [facility] comment (U) [facility] [Inter] [facility] (04916) Drug screen INCONSISTENT (A) [facility] comment (U) [facility] [[facility]] [facility] (08230) Drug screen See Note (A) [facility] comment (U) [facility] [[facility]] [facility] (99494) Hydrocodone (U) 268 (H) [facility] [Mass/Vol] [facility] (14268) Hydromorphone 71 (H) [facility] (U) [Mass/Vol] [facility] (31355) Methadone Ql (U) no information (N) [facility] (73603) Morphine (U) no information (N) [facility] [Mass/Vol] [facility] (56371) Norhydrocodone 465 (H) [facility] Confirm (U) [facility] [Mass/Vol] [facility] (56364) Noroxycodone >88382 (H) [facility] Confirm (U) [facility] [Mass/Vol] [facility] (79314) Opiates Ql (U) no information (A) [facility] (39200) Oxidants Ql (U) no information (N) Community [facility] th [facility] (60675) Oxycodone (U) >27363 (H) [facility] [Mass/Vol] [facility] (97878) Oxycodone Ql (U) no information (A) [facility] (33149) Oxymorphone (U) 3400 (H) [facility] th [Mass/Vol] [facility] (05983) pH (U) 5.5 [pH] (N) 4.6 - 8 [pH] Community [facility] (75039) Phencyclidine Ql no information (N) Community [facility] lt (U) [facility] (85460) Prescribed Drug Oxycodone (no code) Critical [facility] hospital 1 [facility] (39225) Prescribed Drug Oxycodone (no code) [facility] 2 [facility] (15627) Prescribed Drug Oxycodone (no code) [facility] 3 [facility] (78322) Prescribed Drug Oxycodone (no code) [facility] 4 [facility] (63741) Prescribed Drug Oxycodone (no code) [facility] 5 [facility] (10997) Tetrahydrocannab no information (N) [facility] inol Ql (U) [facility] (85478) No panel information on 2019-05-18 GC NEG~NEG (no code) [facility] (81132) No panel information on 2019-05-16 Albumin 4.6 g/dL (N) 3.4 - 5.4 g/dL Community [facility] [Mass/Vol] [facility] (73941) Albumin/Globulin 1.6 {ratio} (N) 1 - 2.5 {ratio} [facility] [Mass ratio] [facility] (38572) ALP [Catalytic 93 U/L (N) 44 - 147 U/L [facility] activity/Vol] [facility] (91450) ALT [Catalytic 16 U/L (N) 4 - 40 U/L Community [facility] ealth activity/Vol] [facility] (46711) AST [Catalytic 16 U/L (N) 10 - 34 U/L [facility] activity/Vol] [facility] (14448) Band form 0.12 10*3/uL (N) 0 - 0.75 10*3/uL [facility] neutrophils [facility] (Bld) [#/Vol] [facility] (88813) Band form 1.9 % (N) 0 - 3 % [facility] th neutrophils/100 [facility] WBC (Bld) [facility] (06829) Basophils (Bld) 0.063 10*3/uL (N) 0 - 0.3 10*3/uL [facility] [#/Vol] [facility] (05776) Basophils/100 1.0 % (N) 0.5 - 1 % [facility] WBC (Bld) [facility] (04456) Bilirubin 0.3 mg/dL (N) 0.1 - 1.2 mg/dL On License Of [facility] Health [Mass/Vol] [facility] (45071) Calcium 9.9 mg/dL (N) 8.5 - 10.2 mg/dL [facility] [Mass/Vol] [facility] (10296) Chloride 99 mmol/L (N) 95 - 106 mmol/L [facility] [Moles/Vol] [facility] (43624) Cholesterol 161 mg/dL (N) 180 - 200 mg/dL On License Of [facility] Health [Mass/Vol] [facility] (54244) Cholesterol in 40 mg/dL (L) [facility] HDL [Mass/Vol] [facility] (82152) Cholesterol in 92 mg/dL (N) 0 - 100 mg/dL [facility] LDL [Mass/Vol] [facility] (44022) Cholesterol non 121 mg/dL (N) Critical access hospital HDL [Mass/Vol] [facility] (11148) Cholesterol.tota 4.0 {ratio} (N) On License [facility] He lt l/Cholesterol in [facility] HDL [Mass ratio] [facility] (79943) CLIENT CONTACT: OLIVA VARGAS (no code) [facility] (92008) CO2 [Moles/Vol] 24 mmol/L (N) 23 - 29 mmol/L [facility] (52612) COMMENT no information (no code) [facility] (66602) Creatinine 1.05 mg/dL (N) [facility] [Mass/Vol] [facility] (73992) Eosinophils 0.617 10*3/uL (H) 0.05 - 0.5 [facility] alth (Bld) [#/Vol] 10*3/uL [facility] (77603) Eosinophils/100 9.8 % (N) 1 - 4 % [facility] WBC (Bld) [facility] (52827) Erythrocyte 12.5 % (N) 11.6 - 14.6 % [facility] ealth distribution [facility] (RBC) [facility] [Ratio] (69828) Free PSA 0.1 (N) [facility] [Mass/Vol] [facility] (44598) Free 33 (N) [facility] PSA/Prostate [facility] Ag.total [Mass (81498) fraction] Free T4 0.9 ng/dL (N) 0.9 - 2.2 ng/dL [facility] [Mass/Vol] [facility] (17110) GFR/1.73 sq M 89 (N) 90 - 120 [facility] alth predicted among mL/min/{1.73_m2} mL/min/{1.73_m2} Center o f [facility] blacks MDRD [facility] (S/P/Bld) [Vol (10370) rate/Area] GFR/1.73 sq 77 (N) 90 - 120 [facility].predicted MDRD mL/min/{1.73_m2} mL/min/{1.73_m2} [facility] (S/P/Bld) [Vol [facility] rate/Area] (65059) Globulin (S) 2.9 g/dL (N) 2 - 3.5 g/dL [facility] ealth [Mass/Vol] [facility] (39325) Glucose 161 mg/dL (H) 60 - 125 mg/dL On License Of [facility] Health [Mass/Vol] [facility] (09877) HbA1c (Bld) 6.0 (H) On License Of [facility] Healt h [Mass fraction] [facility] (90475) Hematocrit (Bld) 43.7 % (N) 36.1 - 50.3 % [facility] ity Health [Volume [facility] (36457) Hemoglobin (Bld) 14.7 g/dL (N) 12.1 - 17.2 g/dL [facility] [Mass/Vol] [facility] (20413) Lymphocytes 2.224 10*3/uL (N) 0.9 - 2.9 On [facility] He alth (Bld) [#/Vol] 10*3/uL [facility] (86710) Lymphocytes/100 35.3 % (N) 20 - 40 % [facility] WBC (Bld) [facility] (44388) MCH (RBC) 29.5 pg (N) 27 - 31 pg On License [facility] Heal th [Entitic mass] [facility] (08189) MCHC (RBC) 33.6 g/dL (N) 32 - 36 g/dL On License [facility] He alth [Mass/Vol] [facility] (17480) MCV (RBC) 87.8 fL (N) 80 - 100 fL On License [facility] Hea lth [Entitic vol] [facility] (69527) Monocytes (Bld) 0.435 10*3/uL (N) 0.3 - 0.9 [facility] [#/Vol] 10*3/uL [facility] (53259) Monocytes/100 6.9 % (N) 2 - 8 % Community He alth WBC (Bld) [facility] (84015) Neutrophils 2.841 10*3/uL (N) 1.7 - 7 10*3/uL [facility] (Bld) [#/Vol] [facility] (94110) Neutrophils/100 45.1 % (N) 40 - 60 % On License Of [facility] Health WBC (Bld) [facility] (67607) Platelet mean 10.6 fL (N) 7.2 - 11.7 fL Community [facility] volume (Bld) [facility] [Entitic vol] [facility] (75964) Platelets (Bld) 233 10*3/uL (N) 150 - 450 On License [facility] [#/Vol] 10*3/uL [facility] ([id number]) Platelets LM Ql ADEQUATE (N) Community [facility] th (Bld) [facility] (46854) Potassium 4.3 mmol/L (N) 3.7 - 5.2 mmol/L [facility] [Moles/Vol] [facility] (09026) Prostate 0.3 ng/mL (N) 0 - 4 ng/mL On License [facility] Hea lt specific Ag [facility] [Mass/Vol] [facility] (42255) Protein 7.5 g/dL (N) 6.4 - 8.3 g/dL [facility] [Mass/Vol] [facility] (90308) RBC (Bld) 4.98 10*6/uL (N) 4.2 - 6.1 On License [facility] lth [#/Vol] 10*6/uL [facility] (98743) Reference lab HEMOGLOBIN A1c (no code) Community Healt h test name [facility] (Reference lab (78528) test) Reference lab 496SB (no code) On License [facility] Healt h test [facility] (Reference [facility] lab test) [ID] ([id number]) REPORT ALWAYS no information (no code) On License [facility] Healt h MESSAGE [facility] (37236) Sodium 141 mmol/L (N) 135 - 145 mmol/L [facility] [Moles/Vol] [facility] (78143) Triglyceride 202 mg/dL (H) 0 - 150 mg/dL [facility] [Mass/Vol] [facility] (27555) TSH Qn 2.20 m[IU]/L (N) 0.4 - 4 m[IU]/L [facility] (62162) Urea nitrogen 16 mg/dL (N) 7 - 20 mg/dL [facility] [Mass/Vol] [facility] (66233) Urea NOT APPLICABLE (no code) Community Healt nitrogen/Creatin [facility] ine [Mass ratio] [facility] (93689) WBC (Bld) 6.3 10*3/uL (N) 3.5 - 10.5 Community [facility] th [#/Vol] 10*3/uL [facility] (64380) No panel information on 2019-05-10 Bacteria SEE NOTE (no code) Community Healt identified [facility] cx Nom (Genital [facility] specimen) (50089) Bacteria SEE NOTE (no code) [facility] Nom (U) [facility] (90506) BLO trace (no code) [facility] (60010) Control neg~pass (no code) [facility] (34851) Exp date 06/10/2019 (no code) [facility] (16833) KET 07/2020~slightly (no code) On License [facility] lt cloudy~dark [facility] yellow~none~neg~ [facility] neg~neg (44674) EPI neg~neg (no code) [facility] (80939) Lot # [id number] (no code) [facility] (69634) Lot # [id number] (no code) [facility] (84527) pH (Bld) 5.5 [pH] (no code) 7.38 - 7.42 [pH] Communit [facility] (72729) Protein (U) no information (no code) 0 - 20 mg/dL [facility] [Mass/Vol] [facility] (66377) SG 1.030 (no code) [facility] (80138) URO 0.2 (no code) [facility] (60968) No panel information on 2019-02-15 Amphetamines Ql no information (N) Community [facility]al th (U) [facility] (44781) Barbiturates Ql no information (N) [facility] th (U) [facility] (38653) Benzodiazepines no information (N) [facility] Ql (U) [facility] (34567) Benzoylecgonine no information (N) [facility] Ql (U) [facility] (57222) Codeine (U) no information (N) [facility] [Mass/Vol] [facility] (09571) COMMENT no information (no code) [facility] h [facility] (40608) Creatinine (U) 131.8 mg/dL (N) [facility] [Mass/Vol] [facility] (74444) Drug screen CONSISTENT (N) [facility] comment (U) [facility] [Interp] [facility] (56034) Hydrocodone (U) no information (N) Community [facility] [Mass/Vol] [facility] (22704) Hydromorphone no information (N) Community [facility]alt h (U) [Mass/Vol] [facility] (37190) Methadone Ql (U) no information (N) [facility]58497[facility] Morphine (U) no information (N) [facility] [Mass/Vol] [facility] (90918) Norhydrocodone no information (N) [facility] Confirm (U) [facility] [Mass/Vol] [facility] (46734) Noroxycodone >02457 (H) Community Healt h Confirm (U) [facility] [Mass/Vol] [facility] (53421) Opiates Ql (U) no information (N) [facility] h [facility] (74167) Oxidants Ql (U) no information (N) Community Heal [facility] (51879) Oxycodone (U) >86344 (H) [facility] [Mass[facility]] [facility] (72665) Oxycodone Ql (U) no information (A) [facility]15164[facility] Oxymorphone (U) 5169 (H) Community [facility] [Mass/Vol] [facility] (24068) pH (U) 6.6 [pH] (N) 4.6 - 8 [pH] Community [facility] (96194) Phencyclidine Ql no information (N) [facility] lt (U) [facility] (84169) Prescribed Drug Oxycodone (no code) [facility] hospital [facility] (88724) Prescribed Drug Oxycodone (no code) [facility] (13536) Prescribed Drug Oxycodone (no code) [facility] (02593) Prescribed Drug Oxycodone (no code) [facility] (84783) Prescribed Drug Oxycodone (no code) [facility] (59566) Tetrahydrocannab no information (N) [facility] lt inol Ql (U) [facility] (83610) No panel information on 2019-01-25 Amphetamines Ql no information (N) [facility] th (U) [facility] (82890) Barbiturates Ql no information (N) [facility] th (U) [facility] (93744) Benzodiazepines no information (N) Community [facility] Ql (U) [facility] (51736) Benzoylecgonine no information (N) [facility] hospital Ql (U) [facility] (90865) Codeine (U) no information (N) [facility] h [Mass/Vol] [facility] (48415) COMMENT no information (no code) Community Healt [facility] (38259) Creatinine (U) 216.8 mg/dL (N) [facility] [Mass[facility]] [facility] (67514) Drug screen CONSISTENT (N) [facility] comment (U) [facility] [Interp] [facility] (09836) Hydrocodone (U) no information (N) [facility] th [Mass/Vol] [facility] (04478) Hydromorphone no information (N) [facility] (U) [Mass/Vol] [facility] (81015) Methadone Ql (U) no information (N) [facility] (63501[facility] Morphine (U) no information (N) [facility] [Mass/Vol] [facility] (92228) Norhydrocodone no information (N) Community [facility]alt h Confirm (U) [facility] [Mass/Vol] [facility] (65338) Noroxycodone >00209 (H) Community Healt h Confirm (U) [facility] [Mass/Vol] [facility] (20755) Opiates Ql (U) no information (N) Community [facility]alt [facility] (50969) Oxidants Ql (U) no information (N) [facility] (66225) Oxycodone (U) >67102 (H) [facility] [Mass/Vol] [facility] (12248) Oxycodone Ql (U) no information (A) [facility] (55866) Oxymorphone (U) 8899 (H) Critical access hospital [Mass/Vol] [facility] (67726) pH (U) 5.4 [pH] (N) 4.6 - 8 [pH] [facility] (72873) Phencyclidine Ql no information (N) [facility] lt (U) [facility] (98753) Prescribed Drug Oxycodone (no code) [facility] th 1 [facility] (52924) Prescribed Drug Oxycodone (no code) [facility] (73746) Prescribed Drug Oxycodone (no code) [facility] hospital 3 [facility] (93603) Prescribed Drug Oxycodone (no code) [facility] th 4 [facility] (84820) Prescribed Drug Oxycodone (no code) Critical access hospital 5 [facility] (90814) Tetrahydrocannab no information (N) [facility] inol Ql (U) [facility] (66928) No panel information on 2018-08-13 Bacteria SEE NOTE (no code) Community Healt h identified Cx [facility] (U) [facility] (92871) C. trachomatis NOT DETECTED (N) [facility] JUDITH+probe [facility] (Unsp spec) [facility] (04737) COMMENT no information (no code) On License [facility] Healt [facility] (74549) N. gonorrhoeae NOT DETECTED (N) [facility] rRNA JUDITH+probe [facility] (Unsp spec) [facility] (18993) Vital Signs The data below is from unstructured sources Vital Response Date/Time Temperature (Fahrenheit) 97.3 degree s F (97.6 - 99.5) 01/01/2016 2:48pm Temperature (Calculated Celsius) 36. 99692 degrees C (36.4 - 37.5) 01/01/2016 2:48pm Temperature Source Tympanic 01/01/2016 2:48pm Pulse Rate (adult) 62 bpm (60 - 90) 01/01/2016 2:48pm Respiratory Rate 18 bpm (12 - 24) 01/01/2016 2:48pm O2 Sat by Pulse Oximetry 96 % (88 - 100) 01/01/2016 2:48pm Blood Pressure 107/85 mm Hg 01/01/2016 2:48pm Pain Numeric Pain Scale 0-No Pain 01/01/2016 2:48pm Pain Intensity 0 2015 2:40pm Height (Feet) 5 feet 12:39pm Height (Inches) 8.00 inches 01/01/2016 12:39pm Height (Calculated Centimeters) 172. 924494 cm 01/01/2016 12:39pm Weight (Pounds) 226 pounds 01/01/2016 12:39pm Weight (Ounces) 0.0 oz 0 01/01/2016 12:39pm Weight (Calculated Grams) 686825.88 gm 01/01/2016 12:39pm Weight (Calculated Kilograms) 102.51 1877 kilograms 01/01/2016 12:39pm Calculated BMI 34.4 12/10 12:39pm Vital Reading Result Col lection Date/Time Interventions No Information Plan of Treatment Normalized Care Care Detail Care Activity Date Care Provider F acility Activity Patient Education no information no information NORA MACDONALD [id number] [facility] (88802) Patient referral no information no information NORA MACDONALD [address] [facility] (97298) Goals Patient Goal Desired Goal no information no information Social History Normalized Code Original Code Date Value Tobacco smoking status Tobacco smoking status no information Never smoked tobacco [facility] (finding) no information no information 05-28-2019 Denies Use no information no information 05-28-2019 No no information no information 05-28-2019 Never a Smoker Sex Assigned At Sex Assigned At 1960 - Male Tobacco smoking status Tobacco smoking status no information Ex-[facility] (finding) [facility] no information no information 05-29-2019 Former Smoker Functional Status The data below is from unstructured sourcesNo functional status results.No Functional Status information availableNo Functional Status information availableNo Functional Status information availableNo Functional Status information available Mental Status The data below is from unstructured sourcesNo Mental Status Information AvailableNo Mental Status Information AvailableNo Mental Status Information Available Encounters Encounter Normalized Encounter Encounter Diagnosis Care Provi max Organization Date Type 05-10-2019 [facility] Frequency of ELIAZAR HOPE (n o [facility] micturition phone) IN CARE (no emmanuelle ne) 10-31-2018 [facility] Other lesions of oral KEVIN EDNA (no phone) [facility] mucosa IN CARE (no phone) 07-15-2019 [facility] Acute frontal NORA TORRES (no phone ) [facility] (no sinusitis, unspecified phone) 06-10-2019 [facility] Essential (primary) NORA MACDONALD (no phone) [facility] (no hypertension phone) 05-16-2019 [facility] Essential (primary) JULIOCESAR HARRIS (no [facility] (no hypertension phone) phone) 02-02-2019 [facility] Encounter for NORA MACDONALD (no phone ) [facility] (no immunization phone) 02-02-2019 [facility] Low back pain NORA MACDONALD (no phone ) [facility] (no phone) 08-13-2018 [facility] Acute prostatitis NORAMargarette MACDONALD (no p kike) [facility] (no phone) 06-09-2018 [facility] Essential (primary) NORA MACDONALD (no phone) [facility] (no hypertension phone) 01-31-2019 [facility] Chronic periodontitis, NISHA SINGER (n o phone) [facility] DENTAL unspecified DENTAL (no phone) 12-30-2018 [facility] Dental caries, KUSH NEARING (no [facility] DENTAL unspecified phone) DENTAL (no phon e) 12-22-2018 [facility] Encounter for dental LINDSEY ALVARES ( no phone) [facility] DENTAL examination and DENTAL (no phone) cleaning without abnormal findings 11-09-2018 [facility] Dental caries, IMER WAGONER (no [facility] DENTAL unspecified phone) DENTAL (no phon e) 04-22-2018 [facility] no information Doctor Migrati on (no [facility] phone) (no phone) 04-14-2018 [facility] no information Doctor Migrati on (no [facility] phone) (no phone) 04-05-2018 [facility] no information Doctor Migrati on (no [facility] phone) (no phone) 03-18-2018 [facility] no information Doctor Migrati on (no [facility] phone) (no phone) 03-15-2018 [facility] no information Doctor Migrati on (no [facility] phone) (no phone) 12-04-2017 [facility] no information Doctor Migrati on (no [facility] phone) (no phone) 10-04-2016 [facility] no information Doctor Migrati on (no [facility] phone) (no phone) 05-26-2019 Consultation for Other long term acute care registered nurse NORA MACDONALD (no phon e) [facility] (no laboratory medicine (current) drug therapy phone) 02-15-2019 Consultation for Other [facility] NORA MACDONALD (no phon e) [facility] laboratory medicine (current) drug therapy (no phone) 01-25-2019 Consultation for Other m[facility]p [facility] MACDONALD (no phon e) [facility] laboratory medicine (current) drug therapy (no phone) 06-11-2018 Consultation for Other m[facility] MACDONALD (no phon e) [facility] ([facility] laboratory medicine (current) drug therapy phone) 05-29-2019 Emergency department no information (no phone) [facility] visit [facility] (no phone) 05-29-2019 05-29-2019 Emergency department no information RUY DAMON MD (no [facility] - patient visit phone) [facility] 05-29-2019 (no phone) 05-28-2019 Emergency department no information (no phone) [facility] - patient visit Hospital (no phone) 05-28-2019 05-28-2019 Emergency department no information DOMINGA Vasquez DO [facility] - patient visit (no phone) [facility] 05-28-2019 (no phone) 06-02-2019 [facility] Encounter for NORA MACDONALD (no phone) [facility] screening for [facility] malignant neoplasm of (no phone) colon 05-28-2019 Nursing evaluation of Other specified soft HUAN SH AFFER (no [facility] patient and report tissue disorders phone) IN CARE ( no phone) 06-23-2019 Patient encounter no information KUSH HOLLOWAY MD ( no [facility] procedure phone) [facility] (no phone) 06-02-2019 Patient encounter no information no name (no phone) no organization name procedure (no phone) 05-28-2019 Patient encounter no information no name (no phone) no organization name procedure (no phone) 05-26-2019 Patient encounter no information no name (no phone) no organization name procedure (no phone) 05-16-2019 Patient encounter no information no name (no phone) no organization name procedure (no phone) 05-10-2019 Patient encounter no information no name (no phone) no organization name procedure (no phone) 02-15-2019 Patient encounter no information no name (no phone) no organization name procedure (no phone) 02-15-2019 Patient encounter no information no name (no phone) no organization name procedure (no phone) 02-02-2019 Patient encounter no information no name (no phone) no organization name procedure (no phone) 01-31-2019 Patient encounter no information no name (no phone) no organization name procedure (no phone) 01-25-2019 Patient encounter no information no name (no phone) no organization name procedure (no phone) 01-25-2019 Patient encounter no information no name (no phone) no organization name procedure (no phone) 12-30-2018 Patient encounter no information no name (no phone) no organization name procedure (no phone) 12-22-2018 Patient encounter no information no name (no phone) no organization name procedure (no phone) 11-09-2018 Patient encounter no information no name (no phone) no organization name procedure (no phone) 10-31-2018 Patient encounter no information no name (no phone) no organization name procedure (no phone) 10-31-2018 Patient encounter no information no name (no phone) no organization name procedure (no phone) 08-13-2018 Patient encounter no information no name (no phone) no organization name procedure (no phone) 06-11-2018 Patient encounter no information no name (no phone) no organization name procedure (no phone) 06-09-2018 Patient encounter no information no name (no phone) no organization name procedure (no phone) 01-01-2016 Patient encounter no information ALEK D MENDES DO (no [facility] - procedure phone) [facility] 01-01-2016 (no phone) 12-27-2015 Patient encounter no information ALEK D MENDES DO (no [facility] procedure phone) [facility] (no phone) 12-21-2015 Patient encounter no information ALEK D MENDES DO (no [facility] - procedure phone) [facility] 12-21-2015 (no phone) 02-04-2015 Patient encounter no information BRANDON ESQUIVEL APR N [facility] - procedure (no phone) [facility] 02-05-2015 (no phone) Patient encounter no information no name (no phone) no organ ization name procedure (no phone) 08-04-2019 Telephone encounter no information NORA MACDONALD (no ph one) [facility] (no phone) 08-02-2019 Telephone encounter no information NORA MACDONALD (no ph one) [facility] (no phone) 08-01-2019 Telephone encounter no information NORA MACDONALD (no ph one) [facility] (no phone) 07-25-2019 Telephone encounter no information NORA MACDONALD (no ph one) [facility] (no phone) 06-30-2019 Telephone encounter no information NORA TORRES (no ph one) [facility] (no phone) 06-28-2019 Telephone encounter no information NORA TORRES (no ph one) [facility] (no phone) 06-07-2019 Telephone encounter no information NORA MACDONALD (no ph one) [facility] (no - phone) 06-07-2019 - 06-07-2019 06-06-2019 Telephone encounter no information NORA MACDONALD (no ph one) [facility] (no phone) 06-03-2019 Telephone encounter no information NORA TORRES (no ph one) [facility] (no phone) 05-31-2019 Telephone encounter no information NORA TORRES (no ph one) [facility] (no phone) 05-30-2019 Telephone encounter no information NORA MACDONALD (no ph one) [facility] (no phone) 05-25-2019 Telephone encounter Other [facility] NORA MACDONALD (no p kike) [facility] (no (current) drug therapy phone) 05-23-2019 Telephone encounter no information NORA MACDONALD (no ph one) [facility] (no phone) 05-02-2019 Telephone encounter no information JULIOCESAR HARRIS (no [facility] (no phone) phone) 04-05-2019 Telephone encounter no information NORA MACDONALD (no ph one) [facility] (no phone) 04-04-2019 Telephone encounter no information NORA MACDONALD (no ph one) [facility] (no phone) 03-08-2019 Telephone encounter no information NORA MACDONALD (no ph one) [facility] (no phone) 03-02-2019 Telephone encounter no information NORA MACDONALD (no ph one) [facility] (no phone) 02-23-2019 Telephone encounter no information NORA TORRES (no ph one) [facility] (no phone) 02-15-2019 Telephone encounter Other mcf[facility] NORA MACDONALD (no p kike) [facility] (no - (current) drug therapy phone) 02-15-2019 - 02-15-2019 02-08-2019 Telephone encounter no information NORA TORRES (no ph one) [facility] (no phone) 02-02-2019 Telephone encounter no information NORA TORRES (no ph one) [facility] (no - phone) 02-02-2019 - 02-02-2019 01-25-2019 Telephone encounter Other long term acute care registered nurse NORA MACDONALD (no p kike) [facility] (no (current) drug therapy phone) 01-11-2019 Telephone encounter no information NORA TORRES (no ph one) [facility] (no phone) 12-28-2018 Telephone encounter no information NORA TORRES (no ph one) [facility] (no phone) 12-15-2018 Telephone encounter no information NORA TORRES (no ph one) [facility] (no phone) 12-02-2018 Telephone encounter no information NORA TORRES (no ph one) [facility] (no - phone) 12-02-2018 - 12-02-2018 11-15-2018 Telephone encounter no information NORA TORRES (no ph one) [facility] (no phone) 11-04-2018 Telephone encounter no information JULIOCESAR HARRIS (no [facility] (no phone) phone) 10-18-2018 Telephone encounter no information NORA TORRES (no ph one) [facility] (no phone) 10-06-2018 Telephone encounter no information NORA TORRES (no ph one) [facility] (no phone) 09-16-2018 Telephone encounter no information NORA MACDONALD (no ph one) [facility] (no phone) 09-15-2018 Telephone encounter no information NORA TORRES (no ph one) [facility] (no - phone) 09-15-2018 - 09-15-2018 09-07-2018 Telephone encounter no information NORA TORRES (no ph one) [facility] (no - phone) 09-07-2018 - 09-07-2018 08-27-2018 Telephone encounter no information NORA TORRES (no ph one) [facility] (no phone) 08-18-2018 Telephone encounter no information NORA TORRES (no ph one) [facility] (no phone) 08-09-2018 Telephone encounter no information JULIOCESAR HARRIS (no [facility] (no phone) phone) 07-19-2018 Telephone encounter no information JULIOCESAR HARRIS (no [facility] (no phone) phone) 07-08-2018 Telephone encounter no information NORA MACDONALD (no ph one) [facility] (no phone) 07-05-2018 Telephone encounter no information NORA MACDONALD (no ph one) [facility] (no phone) 06-22-2018 Telephone encounter no information NORA MACDONALD (no ph one) [facility] (no phone) 06-21-2018 Telephone encounter no information NORA MACDONALD (no ph one) [facility] (no phone) 06-17-2018 Telephone encounter no information NORA MACDONALD (no ph one) [facility] (no phone) 06-15-2018 Telephone encounter no information NORA MACDONALD (no ph one) [facility] (no phone) 06-14-2018 Telephone encounter no information NORA MACDONALD (no ph one) [facility] (no phone) 06-12-2018 Telephone encounter no information NORA MACDONALD (no ph one) [facility] (no phone) 06-11-2018 Telephone encounter Low back pain NORA MACDONALD (no emmanuelle ne) [facility] (no phone) 05-20-2018 Telephone encounter no information URSULA SIERRA [facility]) phone) 05-18-2018 Telephone encounter no information URSULA SIERRA (no [facility] [place] ([facility] phone) phone) 05-15-2018 Telephone encounter no information URSULA SIERRA (no [facility] phone) (no phone) 05-14-2018 Telephone encounter no information URSULA SIERRA (no [facility] [place] (no phone) phone) 05-12-2018 Telephone encounter Low back pain URSULA SIERRA ( no [facility] phone) (no phone) 05-09-2018 Telephone encounter no information Doctor Migration (no [facility] phone) (no phone) 06-22-2019 no information Encounter for other no name (no phon e) no organization name preprocedural (no phone) examination no information Encounter for dental no name (no phone) no or ganization name examination and (no phone) cleaning without abnormal findings Medical Equipment The data below is from unstructured sourcesNo Medical Equipment Information availableNo Medical Equipment Information availableNo Medical Equipment Information available Payers Normalized Payer Value Medicaid no information ([id number]) Medicare no information ([id number]) Evaluation note Note Type Note Facility Evaluation No Assessments Information Available A scension note Via [facility] ([id number]) History general Narrative - Reported Note Type Note Facility History general Narrative - Reported Type Medical hypertension History Medical Chronic Arthritis History Medical acid reflux History Surgical bilateral feet reconstructi on History Surgical hernia surgery History Surgical Thyroidectomy 11/03/18 History [facility] ([id number]) Advance Directives Directive Response Recor ded Date/Time Advance Directives No 12:39pm Health Care Power of Hand Paint Mixer No 01/01/16 12:39pm Organ Donor No 01/01/16 12:39pm Resuscitation Status Full Code 01/01/16 12:39pm Advance Directive Response Recorded Date/Time Advance Directives No Kevin coughlin 2019 1:05pm Health Care Power of Hand Paint Mixer No January 01, 2016 12:39pm Organ Donor No December 312015 12:39pm Resuscitation Status Full Code May 28, 2019 1:05pm Advance Directive Response Recorded Date/Time Advance Directives No Kevin coughlin 2019 10:32am Health Care Power of Hand Paint Mixer No May 29, 2019 10:32am Organ Donor No May 112019 10:32am Resuscitation Status Full Code May 29, 2019 10:32am Discharge Instructions Patient Instructions Physician Instructions New, Converted or Re-Newed RX: Transmitted to Pharmacy Plan of Care/Instructions/FU: follow-up with Dr. Mendes in 2-3 weeks Take medication as directed. the patient will need colonoscopy in 10 years unless changes in current condition or recent family history of colon cancer Activity as Tolerated: Yes Discharge Diet: No Restrictions Care Plan Patient Instructions:: follow-up with Dr. Mendes in 2-3 weeksTake medication as directed. the patient will need colonoscopy in 10 years unless changes in currentcondition or recent family history of colon cancer Chief Complaint and Reason for Visit Chief Complaint Lower Extremity Reason for Visit [id number] Chief Complaint - Urinary Reason for Visit [id number] Additional Source Comments This clinical document has been generated using [employer] software that has been certified by the Office of the National Coordinator for Health Information Technology (ONC 15.99.04.3023.Diam.31.00.0.908791) and the National Committee for Commercial Real Estate Attorney (NCQA, as an eMeasure certified technology). FOR RECORDS PERTAINING TO PATIENTS WHO ARE OR HAVE BEEN ENROLLED IN A CHEMICAL D EPENDENCY/SUBSTANCE ABUSE PROGRAM, SOME INFORMATION MAY BE OMITTED. This clinica l summary was aggregated from multiple sources. Caution should be exercised in using it in the provision of clinical care. This summary normalizes information from multiple sources, and as a consequence, information in this document may ma terially change the coding, format and clinical context of patient data. In emmy tion, data may be omitted in some cases. CLINICAL DECISIONS SHOULD BE BASED ON T HE PRIMARY CLINICAL RECORDS. [employer] provides no warranty or guara ntee of the accuracy or completeness of information in this document.The followi ng information is based on time limited clinical information UNRECOGNIZED CONTENT PROVIDED BELOW FOR UNRECOGNIZED SECTION REASON FOR VISIT MARKO to livia
--- OUTSIDE RECORDS SUMMARY | 2019-08-21 20:26 | XMS REPORT ---
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 Name Role Phone JULIOCESAR HARRIS Unavailable PROBLEMS Type Condition ICD9-CM Code KLQ63-EE Code Onset Dates Condition S tatus SNOMED Code Problem Closed displaced fracture of navicular bone of f oot with nonunion S92.253K September, Active 569084053 Problem Encounter for chronic pain management G89.29 September, Active 49306753 Problem Severe obesity (BMI 35.0-39.9) with comorbidity E66.01 Nov, Active 882575897 Problem Glands swollen R59.9 Oct, Active 30 260564 Problem Duodenal ulcer K26.9 Oct, Active 51 531086 Problem Hepatitis C virus infection without hepatic coma B19.20 15 Nov, 2015 Active 26917978 Problem Hiatal hernia K44.9 16 Mar, 2010 Active 840 19790 Problem Degeneration of lumbar or lumbosacral intervertebral d isc M51.37 14 Feb, 2010 Active 22363038 Problem Solitary nodule of right lobe of thyroid E04.1 Dec, Active 629729106 Problem Chronic rhinitis J31.0 Nov, Active 98508064 Problem HTN (hypertension), benign I10 Feb, Active 73190185 Problem Cough R05 16 May, 2016 Active 3976266 2 Problem 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 Act matthew 920480999 Problem Chronic pain due to injury G89.21 18 Mar, 2015 Active 400224001 Problem RENU on CPAP G47.33 Dec, Active 62234 009 Problem GERD without esophagitis K21.9 Activ e 111339646 Problem Muscle spasms of neck M62.838 15 Mar, 2017 Activ e 85457105 Problem Radiculopathy of leg M54.10 14 Feb, 2010 Active 78257053 Problem Left flank pain R10.9 07 Jul, 2016 Active 1 30423523 Problem Low back pain M54.5 Active 237395 009 Problem Other chronic pain G89.29 Active 8 8927610 Problem Essential hypertension I10 Active 26416293 Problem Hep C w/o coma, chronic B18.2 Active 984670810 ALLERGIES No Information ENCOUNTERS Encounter Location Date Diagnosis [place] [address] [place] [address] Jul, [facility] [address] [facility] [address] [place] [address] Jul, [facility] [address] [facility] [id number] [place] [address] Jul, [place] [address] [facility] [address] [place] [address] Jul, [place] [address] [facility] [id number] [place] [address] Jul, Acute non-recurrent frontal sinusitis J0 1.10 and Bronchitis, not specified as acute or chronic J40 [place] [address] [facility] [address] [place] [address] Jun, [place] [address] [facility] [id number] [place] [address] Jun, [place] [address] [facility] [id number] [place] [address] May, HTN (hypertension), benign I10 and Hemat uria, unspecified type R31.9 [place] [address] [facility] [id number] [place] [address] May, [facility] [address] [facility] [id number] [place] [address] May, [place] [address] [facility] [address] [id number] [place] [address] May, [place] [address] [facility] [address] [id number] [place] [address] May, [facility] [address] [place] [address] May, Screening for colon cancer Z12.11 [facility] [address] [facility] [address] [id number] [place] [address] May, [facility] [address] [id number] 100[address] [place] [address] May, [facility] [place] [facility] [address] [id number] [place] [address] May, Right leg swelling M79.89 [facility] [address] [facility] [address] [id number] [place] [address] 16 May, 2019 High risk medication use Z79.899 [facility] [address] [facility] [address] [id number] [place] [address] 15 May, 2019 High risk medication use Z79.899 [facility] [address] [facility] [address] [id number] [place] [address] May, [facility] [address] [facility] [address] [id number] [place] [address] May, HTN (hypertension), benign I10 ; History of BPH Z87.438 ; GERD without esophagitis K21.9 ; Hematuria, unspecified type R31.9 and Screening for malignant neoplasm of colon Z12.11 [facility] [address] [id number] [place] [address] Apr, Urinary frequency R35.0 and History of BPH Z87.438 [facility] [address] [facility] [address] [id number] [place] [address] Apr, [facility] [address] [facility] [address] [id number], [place] [address] Mar, [facility] [address] [id number] [place] [address] Mar, [facility] [address] [facility] [address] [id number], [place] [address] Feb, [facility] [address] [facility] [address] [id number], [place] [address] Feb, [facility] [address] [id number] [place] [address] Feb, [facility] [address] [id number] [place] [address] Feb, [facility] [place] [facility] [address] [facility] [address] [id number] [place] [address] Feb, High risk medication use Z79 .899 [facility] [address] [id number] [place] [address] Feb, High risk medication use Z79.899 [facility] [address] [id number] [place] [address] Feb, [facility] [id number] [place] [address], [place] [address] Jan, [facility] [address] [id number] [place] [address] Jan, [facility] [address] [id number] [place] [address] Jan, Encounter for immunization Z23 [facility] [address] [id number] [place] [address] Jan, Low back pain M54.5 and Other chronic pa in G89.29 [facility] [address] [id number] [place] [id number] Jan, Periodontitis K05.30 [facility] [place] [address] [id number] [place] [address] Jan, High risk medication use Z79 .899 [facility] [address] [id number] [place] [address] Jan, High risk medication use Z79.899 [facility] [address] [id number] [place] [address] Jan, [facility] [address] [id number] [place] [id number] Dec, Caries K02.9 [facility] [address] [id number], [place] [address] Dec, [facility] [address] [id number] [place] [id number] Dec, Dental examination Z01.20 an d Caries K02.9 [facility] [address] [id number] [place] [address] Dec, [facility] [address] [id number] [place] [address] Nov, [facility] [address] [id number] [place] [address] Nov, [facility] [address] [id number] [place] [address] Nov, [facility] [address] [id number] [facility] [place] [id number] Nov, Caries K02.9 and Dental exam ination Z01.20 [facility] [address] [id number] [place] [address] Oct, [facility] [place] [facility] [address] [id number] [place] [address] Oct, Mouth pain K13.79 [facility] [address] [id number] [place] [address] Oct, [facility] [address] [id number] [place] [address] September, [facility] [address] [id number] [place] [address] September, [facility] [address] [id number] [place] [address] September, [facility] [address] [id number] [place] [address] September, [facility] [address] [id number] [place] [address] Aug, [facility] [address] [id number] [place] [address] Aug, [facility] [place] [address] [id number] [place] [address] Aug, [facility] [place] [address] [id number] [place] [address] Aug, [facility] [place] [address] [id number] [place] [address] Aug, Acute prostatitis N41.0 and High risk se xual behavior, unspecified type Z72.51 [facility] [address] [id number] [place] [address] Aug, [facility] [place] [address] [id number] [place] [address] Jul, [facility] [place] [address] [id number] [place] [address] Jun, [facility] [place] [address] [id number] [place] [address] Jun, [facility] [place] [address] [id number] [place] [address] Jun, [facility] [place] [address] [id number] [place] [address] Jun, [facility] [place] [address] [id number] [place] [address] Jun, [facility] [place] [address] [id number] [place] [address] Jun, [facility] [place] [address] [id number] [place] [address] Jun, [facility] [place] [address] [id number] [place] [address] Jun, [facility] [place] [address] [id number] [place] [address] Jun, High risk medication use Z79.899 [facility] [address] [id number] [place] [address] Jun, Low back pain M54.5 [facility] [address] [facility] [address] [id number] [place] [address] May, Essential hypertension I10 ; Other chron ic pain G89.29 ; Low back pain M54.5 ; 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 and Hep C w/o coma, chronic B18.2 [facility] [address] [id number] [place] [address] May, [facility] [address] [id number] [place] [address] May, [facility] [address] [id number] [place] [id number] May, [facility] [address] [id number] [place] [address] May, [facility] [address] [facility] [id number] [address] [place] [address] May, Low back pain M54.5 and Othe r chronic pain G89.29 [facility] [address] [facility] [id number] [address] [place] [address] Apr, [facility] [address] [facility] [id number] [address] [place] [address] Apr, [facility] [address] [facility] [id number] [address] [place] [address] Apr, [facility] [address] [facility] [id number] [address] [place] [address] Mar, [facility] [address] [facility] [id number] [address] [place] [address] Mar, [facility] [address] [facility] [id number] [address] [place] [address] Mar, [facility] [address] [facility] [id number] [address] [place] [address] Nov, [facility] [address] [facility] [id number] [address] [place] [address] September, IMMUNIZATIONS No Known Immunizations SOCIAL HISTORY Never Assessed REASON FOR VISIT KRW to [facility] PLAN OF CARE VITAL SIGNS MEDICATIONS Medication Instructions Dosage Frequency Start Date End Date Duration S eber Oxycodone HCl 15 MG Orally every 8 hrs 1 tablet 8h Aug, 28 days Active RESULTS No Results PROCEDURES No Known procedures INSTRUCTIONS MEDICATIONS ADMINISTERED No Known Medications MEDICAL (GENERAL) HISTORY Type Description Date Medical History hypertension Medical History Chronic Arthritis Medical History acid reflux Surgical History bilateral feet reconstruction Surgical History hernia surgery Surgical History Thyroidectomy 11/03/18
--- OUTSIDE RECORDS SUMMARY | 2019-08-21 20:26 | XMS REPORT | Continuity of Care Document ---
Author Organization Unknown Address Unknown Phone Unavailable Allergies Active Description Code Type Severity Reaction Onset Reported/Identified Relationship to Patient Clinical Status Yes morphine [id number] Drug Allergy Moderate ITCHING 12/21/2015 Medications There is no data. Problems Date Dx Coded Attending Type Code Diagnosis Diagnosed By 02/05/2015 BRANDON ESQUIVEL APRN Ot 327.23 OBSTRUCTIVE SLEEP APNEA (ADULT) (PEDIATR 12/21/2015 ALEK MENDES DO D Ot Z01.818 ENCOUNTER FOR OTHER PREPROCEDURAL EXAMIN 12/24/2015 ALEK MENDES DO D Ot Z01.818 ENCOUNTER FOR OTHER PREPROCEDURAL EXAMIN 12/28/2015 MENDESALEK NORTH DO D Ot Z01.818 ENCOUNTER FOR OTHER PREPROCEDURAL EXAMIN 01/01/2016 MENDESAJIT NORTH DOTT D Ot Z01.818 ENCOUNTER FOR OTHER PREPROCEDURAL EXAMIN 01/01/2016 MENDESMARY ANNE FLAHERTY ALEK D Ot Z01.818 ENCOUNTER FOR OTHER PREPROCEDURAL EXAMIN 01/01/2016 AJIT MENDES DOTT D Ot K20. 9 ESOPHAGITIS, UNSPECIFIED 01/01/2016 MENDESMARY ANNE FLAHERTY ALEK D Ot K29. 70 GASTRITIS, UNSPECIFIED, WITHOUT BLEEDING 01/01/2016 MENDESALEK NORTH DO D Ot K44. 9 DIAPHRAGMATIC HERNIA WITHOUT OBSTRUCTION 01/01/2016 MENDESALEK NORTH DO D Ot Z12. 11 ENCOUNTER FOR SCREENING FOR MALIGNANT NE 01/03/2016 MENDESMARY ANNE FLAHERTY ALEK D Ot K20. 9 ESOPHAGITIS, UNSPECIFIED 01/03/2016 MENDES DO ALEK D Ot K29. 70 GASTRITIS, UNSPECIFIED, WITHOUT BLEEDING 01/03/2016 MENDESMARY ANNE FLAHERTY ALEK D Ot K44. 9 DIAPHRAGMATIC HERNIA WITHOUT OBSTRUCTION 01/03/2016 MENDESAJIT NORTH DOTT D Ot Z12. 11 ENCOUNTER FOR SCREENING FOR MALIGNANT NE 01/03/2016 MENDESMARY ANNE FLAHERTY ALEK D Ot K20. 9 ESOPHAGITIS, UNSPECIFIED 01/03/2016 MENDESAMRY ANNE FLAHERTY ALEK D Ot K29. 70 GASTRITIS, UNSPECIFIED, WITHOUT BLEEDING 01/03/2016 [facility] K[facility]. 9 DIAPHRAGMATIC HERNIA WITHOUT OBSTRUCTION 01/03/2016 MENDES ALEK FLAHERTY Ot Z12. 11 ENCOUNTER FOR SCREENING FOR MALIGNANT NE 05/28/2019 MENDES ALEK FLAHERTY Ot Z01.818 ENCOUNTER FOR OTHER PREPROCEDURAL EXAMIN [facility] ESSENTIAL (PRIMARY) HYPERTENSION 05/28/2019 [facility] Rascon Ot M54.42 LUMBAGO WITH SCIATICA, LEFT SIDE 05/28/2019 [facility] [place] Rascon Ot M79.605 PAIN IN LEFT LEG 05/28/2019 [facility] [place] Rascon Ot S76.312A STRAIN OF MSL/FASC/TND POST GRP AT THI L 05/28/2019 [facility] [place] Rascon Ot W00.0XXA FALL ON SAME LEVEL DUE TO ICE AND SNOW, 05/28/2019 [facility] [place] Rascon Ot Z88.5 ALLERGY STATUS TO NARCOTIC AGENT STATUS 05/29/2019 MARISOL RANKIN, RUY Martinez Ot I10 ESSENTIAL (PRIMARY) HYPERTENSION 05/29/2019 MARISOL RANKIN, RUY Martinez Ot R31. 9 HEMATURIA, UNSPECIFIED 05/29/2019 MARISOL RANKIN, RUY Martinez Ot Z87.891 PERSONAL HISTORY OF NICOTINE DEPENDENCE 05/29/2019 RUY DAMON MD Ot Z88. 5 ALLERGY STATUS TO NARCOTIC AGENT STATUS 06/01/2019 [facility] [place] Rascon Ot I1 0 ESSENTIAL (PRIMARY) HYPERTENSION 06/01/2019 [facility] [place] Rascon Ot M54.42 LUMBAGO WITH SCIATICA, LEFT SIDE 06/01/2019 [facility] [place] Rascon Ot M79.605 PAIN IN LEFT LEG 06/01/2019 [facility] Ot S76.312A STRAIN OF MSL/FASC/TND POST GRP AT THI L 06/01/2019 [facility] [place] Rascon Ot W00.0XXA FALL ON SAME LEVEL DUE TO ICE AND SNOW, 06/01/2019 [facility] Ot Z88.5 ALLERGY STATUS TO NARCOTIC AGENT STATUS 06/22/2019 [facility] Ot Z01.818 ENCOUNTER FOR OTHER PREPROCEDURAL EXAMIN 06/23/2019 MENDES , ALEK Vasquez Ot Z01.818 ENCOUNTER FOR OTHER PREPROCEDURAL EXAMIN 06/24/2019 JEWEL RANKIN, KUSH A Ot N28.1 CYST OF KIDNEY, ACQUIRED 06/24/2019 JEWEL RANKIN, KUSH A Ot R31.0 GROSS HEMATURIA 06/27/2019 JEWEL RANKIN, KUSH A Ot N28.1 CYST OF KIDNEY, ACQUIRED 06/27/2019 JEWEL RANKIN, KUSH A Ot R31.0 GROSS HEMATURIA 07/18/2019 JEWEL RANKIN, KUSH A Ot N28.1 CYST OF KIDNEY, ACQUIRED 07/18/2019 JEWEL RANKIN, KUSH A Ot R31.0 GROSS HEMATURIA 07/26/2019 JEWEL RANKIN, KUSH A Ot N28.1 CYST OF KIDNEY, ACQUIRED 07/26/2019 JEWEL RANKIN, KUSH A Ot R31.0 GROSS HEMATURIA Procedures There is no data. Results Test Result Range GC/CHLAMYDIA (SWAB OR URINE)-RAPID - 09/26 09:26 CHLAMYDIA TRACHOMATIS RNA, TMA NOT DETECTED NOT DETECTED NEISSERIA GONORRHOEAE RNA, TMA NOT DETECTED NOT DETECTED COMMENT NRG CULTURE, URINE - 08/13/18 09:26 CULTURE, URINE, ROUTINE SEE NOTE NRG PDM - 09 PANEL (PROFILE 1) - 01/25/19 13 :45 Prescribed Drug 1 Oxycodone NRG Creatinine 216.8 mg/dL > or = 20.0 pH 5.4 4.5-9.0 Oxidant NEGATIVE mcg/mL <200 Amphetamines NEGATIVE ng/mL <500 medMATCH Amphetamines CONSISTENT NRG Benzodiazepines NEGATIVE ng/mL <100 medMATCH Benzodiazepines CONSISTENT NRG Marijuana Metabolite NEGATIVE ng/mL <20 medMATCH Marijuana Metab CONSISTENT NRG Cocaine Metabolite NEGATIVE ng/mL <150 medMATCH Cocaine Metab CONSISTENT NRG Opiates NEGATIVE CONFIRMED ng/mL <100 Oxycodone POSITIVE ng/mL <100 COMMENT NRG Codeine NEGATIVE ng/mL <50 medMATCH Codeine CONSISTENT NRG Hydrocodone NEGATIVE ng/mL <50 medMATCH Hydrocodone CONSISTENT NRG Hydromorphone NEGATIVE ng/mL <50 medMATCH Hydromorphone CONSISTENT NRG Morphine NEGATIVE ng/mL <50 medMATCH Morphine CONSISTENT NRG Norhydrocodone NEGATIVE ng/mL <50 medMATCH Norhydrocodone CONSISTENT NRG Prescribed Drug 2 Oxycodone NRG Prescribed Drug 3 Oxycodone NRG Prescribed Drug 4 Oxycodone NRG Prescribed Drug 5 Oxycodone NRG Noroxycodone >37302 ng/mL <50 medMATCH Noroxycodone CONSISTENT NRG Oxycodone >84513 ng/mL <50 medMATCH Oxycodone CONSISTENT NRG Oxymorphone 8899 ng/mL <50 medMATCH Oxymorphone CONSISTENT NRG Barbiturates NEGATIVE ng/mL <300 medMATCH Barbiturates CONSISTENT NRG Methadone Metabolite NEGATIVE ng/mL <100 medMATCH Methadone Metab CONSISTENT NRG Phencyclidine NEGATIVE ng/mL <25 medMATCH Phencyclidine CONSISTENT NRG PDM - 09 PANEL (PROFILE 1) - 02/15/19 11 :47 Prescribed Drug 1 Oxycodone NRG Creatinine 131.8 mg/dL > or = 20.0 pH 6.6 4.5-9.0 Oxidant NEGATIVE mcg/mL <200 Amphetamines NEGATIVE ng/mL <500 medMATCH Amphetamines CONSISTENT NRG Benzodiazepines NEGATIVE ng/mL <100 medMATCH Benzodiazepines CONSISTENT NRG Marijuana Metabolite NEGATIVE ng/mL <20 medMATCH Marijuana Metab CONSISTENT NRG Cocaine Metabolite NEGATIVE ng/mL <150 medMATCH Cocaine Metab CONSISTENT NRG Opiates NEGATIVE CONFIRMED ng/mL <100 Oxycodone POSITIVE ng/mL <100 COMMENT NRG Codeine NEGATIVE ng/mL <50 medMATCH Codeine CONSISTENT NRG Hydrocodone NEGATIVE ng/mL <50 medMATCH Hydrocodone CONSISTENT NRG Hydromorphone NEGATIVE ng/mL <50 medMATCH Hydromorphone CONSISTENT NRG Morphine NEGATIVE ng/mL <50 medMATCH Morphine CONSISTENT NRG Norhydrocodone NEGATIVE ng/mL <50 medMATCH Norhydrocodone CONSISTENT NRG Prescribed Drug 2 Oxycodone NRG Prescribed Drug 3 Oxycodone NRG Prescribed Drug 4 Oxycodone NRG Prescribed Drug 5 Oxycodone NRG Noroxycodone >53160 ng/mL <50 medMATCH Noroxycodone CONSISTENT NRG Oxycodone >32810 ng/mL <50 medMATCH Oxycodone CONSISTENT NRG Oxymorphone 5169 ng/mL <50 medMATCH Oxymorphone CONSISTENT NRG Barbiturates NEGATIVE ng/mL <300 medMATCH Barbiturates CONSISTENT NRG Methadone Metabolite NEGATIVE ng/mL <100 medMATCH Methadone Metab CONSISTENT NRG Phencyclidine NEGATIVE ng/mL <25 medMATCH Phencyclidine CONSISTENT NRG CULTURE, URINE - 05/10/19 16:43 CULTURE, URINE, ROUTINE SEE NOTE NRG CULTURE, GENITAL - 05/10/19 16:43 CULTURE, GENITAL SEE NOTE NRG A1C - 05/16/19 08:22 HEMOGLOBIN A1c 6.0 % of total Hgb <5.7 TEST AUTHORIZATION - 05/16/19 08:22 TEST NAME: HEMOGLOBIN A1c NRG TEST CODE: 496SB NRG CLIENT CONTACT: OLIVA VARGAS NRG REPORT ALWAYS MESSAGE SIGNATURE NRG COMMENT NRG PSA (FREE AND TOTAL) - 05/16/19 08:22 PSA, TOTAL 0.3 ng/mL < OR = 4.0 PSA, FREE 0.1 ng/mL NRG PSA, % FREE 33 % (calc) >25 PDM - 09 PANEL (PROFILE 1) - 05/26/19 16 :23 Prescribed Drug 1 Oxycodone NRG Creatinine 185.8 mg/dL > or = 20.0 pH 5.5 4.5-9.0 Oxidant NEGATIVE mcg/mL <200 Amphetamines NEGATIVE ng/mL <500 medMATCH Amphetamines CONSISTENT NRG Benzodiazepines NEGATIVE ng/mL <100 medMATCH Benzodiazepines CONSISTENT NRG Marijuana Metabolite NEGATIVE ng/mL <20 medMATCH Marijuana Metab CONSISTENT NRG Cocaine Metabolite NEGATIVE ng/mL <150 medMATCH Cocaine Metab CONSISTENT NRG Opiates POSITIVE ng/mL <100 Oxycodone POSITIVE ng/mL <100 COMMENT NRG Codeine NEGATIVE ng/mL <50 medMATCH Codeine CONSISTENT NRG Hydrocodone 268 ng/mL <50 medMATCH Hydrocodone INCONSISTENT NRG Hydromorphone 71 ng/mL <50 medMATCH Hydromorphone INCONSISTENT NRG Morphine NEGATIVE ng/mL <50 medMATCH Morphine CONSISTENT NRG Norhydrocodone 465 ng/mL <50 medMATCH Norhydrocodone See Note NRG Prescribed Drug 2 Oxycodone NRG Prescribed Drug 3 Oxycodone NRG Prescribed Drug 4 Oxycodone NRG Prescribed Drug 5 Oxycodone NRG Noroxycodone >91604 ng/mL <50 medMATCH Noroxycodone CONSISTENT NRG Oxycodone >72523 ng/mL <50 medMATCH Oxycodone CONSISTENT NRG Oxymorphone 3400 ng/mL <50 medMATCH Oxymorphone CONSISTENT NRG Barbiturates NEGATIVE ng/mL <300 medMATCH Barbiturates CONSISTENT NRG Methadone Metabolite NEGATIVE ng/mL <100 medMATCH Methadone Metab CONSISTENT NRG Phencyclidine NEGATIVE ng/mL <25 medMATCH Phencyclidine CONSISTENT NRG Complete urinalysis with reflex to cultu re - 05/29/19 10:47 Urine color determination BROWN NRG Urine clarity determination CLOUDY NR G Urine pH measurement by test strip 6.5 5-9 Specific gravity of urine by test strip 1.025 1.016-1.022 Urine protein assay by test strip, semi-quantitative 1+ NEGATIVE Urine glucose detection by automated test strip NE GATIVE NEGATIVE Erythrocytes detection in urine sediment by light micr oscopy 3+ NEGATIVE Urine ketones detection by automated test strip NE GATIVE NEGATIVE Urine nitrite detection by test strip NEGATIVE NEGATIVE Urine total bilirubin detection by test strip 1+ NEGATIVE Urine urobilinogen measurement by automated test strip (mass/volume) 1.0 mg/dL < = 1.0 Urine leukocyte esterase detection by dipstick NEG ATIVE NEGATIVE Automated urine sediment erythrocyte cou nt by microscopy (number/high power field) TNTC NRG Automated urine sediment leukocyte count by microscopy (number/high power field) RARE NRG Bacteria detection in urine sediment by light microsco py NEGATIVE NRG Squamous epithelial cells detection in u rine sediment by light microscopy RARE NRG Crystals detection in urine sediment by light microsco py NONE NRG Casts detection in urine sediment by light microscopy NONE NRG Mucus detection in urine sediment by light microscopy SMALL NRG Complete urinalysis with reflex to culture NO NRG Comprehensive metabolic panel - 05/29/19 11:13 Serum or plasma sodium measurement (moles/volume) 141 mmol/L 135-145 Serum or plasma potassium measurement (moles/volume) 4.0 mmol/L 3.6-5.0 Serum or plasma chloride measurement (moles/volume) 106 mmol/L 98-107 Carbon dioxide 25 mmol/L 21-32 Serum or plasma anion gap determination (moles/volume) 10 mmol/L 5-14 Serum or plasma urea nitrogen measurement (mass/volume ) 11 mg/dL 7-18 Serum or plasma creatinine measurement (mass/volume) 0.90 mg/dL 0.60-1.30 Serum or plasma urea nitrogen/creatinine mass ratio 12 NRG Serum or plasma creatinine measurement w ith calculation of estimated glomerular filtration rate > NRG Serum or plasma glucose measurement (mass/volume) 94 mg/dL 70-105 Serum or plasma calcium measurement (mass/volume) 8.8 mg/dL 8.5-10.1 Serum or plasma total bilirubin measurement (mass/volu me) 0.3 mg/dL 0.1-1.0 Serum or plasma alkaline phosphatase migue surement (enzymatic activity/volume) 78 U/L 40-136 Serum or plasma aspartate aminotransfera se measurement (enzymatic activity/volume) 19 U/L 5-34 Serum or plasma alanine aminotransferase measurement (enzymatic activity/volume) 19 U/L 0-55 Serum or plasma protein measurement (mass/volume) 7.0 g/dL 6.4-8.2 Serum or plasma albumin measurement (mass/volume) 4.1 g/dL 3.2-4.5 CALCIUM CORRECTED 8.7 mg/dL 8.5-10.1 Complete blood count (CBC) with automate d white blood cell (WBC) differential - 05/29/19 11:13 Blood leukocytes automated count (number/volume) 5.8 10*3/uL 4.3-11.0 Blood erythrocytes automated count (number/volume) 4.37 10*6/uL 4.35-5.85 Venous blood hemoglobin measurement (mass/volume) 12.9 g/dL 13.3-17.7 Blood hematocrit (volume fraction) 39 % 40-54 Automated erythrocyte mean corpuscular volume 89 [ foz_us] 80-99 Automated erythrocyte mean corpuscular h emoglobin (mass per erythrocyte) 30 pg 25-34 Automated erythrocyte mean corpuscular h emoglobin concentration measurement (mass/volume) 33 g/dL 32-36 Automated erythrocyte distribution width ratio 12. 2 % 10.0- 14.5 Automated blood platelet count (count/volume) 259 10*3/uL 130-400 Automated blood platelet mean volume measurement 9.5 [foz_us] 7.4-10.4 Automated blood neutrophils/100 leukocytes 52 % 42-75 Automated blood lymphocytes/100 leukocytes 32 % 12-44 Blood monocytes/100 leukocytes 11 % 0-12 Automated blood eosinophils/100 leukocytes 4 % 0-10 Automated blood basophils/100 leukocytes 1 % 0-10 Blood neutrophils automated count (number/volume) 3.0 10*3 1.8-7.8 Blood lymphocytes automated count (number/volume) 1.9 10*3 1.0-4.0 Blood monocytes automated count (number/volume) 0. 7 10*3 0.0-1.0 Automated eosinophil count 0.2 10*3/uL 0 .0-0.3 Automated blood basophil count (count/volume) 0.1 10*3/uL 0.0-0.1 PT panel in platelet poor plasma by coag ulation assay - 05/29/19 11:13 Prothrombin time (PT) in platelet poor plasma by coagu lation assay 14.2 s 12.2-14.7 INR in platelet poor plasma or blood by coagulation as say 1.1 0.8-1.4 Encounters ACCT No. Visit Date/Time Discharge Status Pt. Type Provider Facility Loc./Unit Complaint [id number] 05/28/2019 12:10:00 05/28/2019 23:59: 59 CLS Outpatient NORA MACDONALD [facility] [id number] 05/26/2019 10:20:00 Document Registration [id number] 05/16/2019 08:20:00 Document Registration [id number] 05/10/2019 14:50:00 Document Registration [id number] 02/15/2019 11:30:00 Document Registration [id number] 01/25/2019 13:30:00 Document Registration [id number] 08/13/2018 09:20:00 Document Registration [id number] 02/16/2014 11:33:00 014 23:59:00 DIS Outpatient Liys Naqvi APRN [facility].IMG.RA [id number] 06/23/2019 13:19:00 23:59:59 CLS Outpatient JEWEL RANKIN, KUSH Hanks [facility] RAD FS GROSS HEMATURIA [id number] 05/29/2019 10:27:00 12:12:00 DIS Emergency MARISOL RANKIN, RUY Martinez [facility] ER FS BLOODY URINE [id number] 05/28/2019 12:56:00 020 14:11:00 DIS Emergency DOMINGA IBARRA DO [facility] ER FS LT LEG PAIN - FELL ON I CE LAST WKND [id number] 01/01/2016 12:03:00 016 14:49:00 DIS Outpatient ALEK MENDES DO [facility] SDC SCREENING; PEPTIC ULCER [id number] 12/27/2015 06:05:00 016 23:59:59 CLS Outpatient ALEK MENDES DO [facility] PREOP SCREENING; PEPTIC ULCER [id number] 12/21/2015 05:43:00 016 09:44:00 DIS Outpatient ALEK MENDES DO [facility] PREOP SCREENING; PEPTIC ULCER [id number] 02/04/2015 20:12:00 015 06:10:00 DIS Outpatient BRANDON ESQUIVEL APRN [facility] SLEEP RENU
--- NOTE | 2019-08-21 20:29 | ED General ---
General Stated Complaint: LEFT ANKLE INJURY Source of Information: Patient History of Present Illness Date Seen by Provider: Aug 21, 2019 Time Seen by Provider: 20:29 Initial Comments Patient is a 59-year-old male who comes to the emergency department today complaining of ankle injury on the left. The patient was fishing today when he had a rotational type injury. He did not strike his head. He complains of pain and swelling over the left ankle both medial and lateral aspect. Allergies and Home Medications Allergies Coded Allergies: morphine (Verified Allergy, Intermediate, ITCHING, 12/21/15) Home Medications Amlodipine Besylate 5 Mg Tablet, 5 MG PO DAILY, (Reported) Cetirizine HCl 10 Mg Tablet, 10 MG PO DAILY, (Reported) Ibuprofen 800 Mg Tablet, 800 MG PO Q8H PRN for PAIN, (Reported) Meloxicam 15 Mg Tablet, 15 MG PO DAILY, (Reported) Oxycodone HCl 60 Mg Tab.er.12h, 60 MG PO Q12H, (Reported) Oxycodone HCl 15 Mg Tablet, 15 MG PO PRN PRN for PAIN, (Reported) Pantoprazole Sodium 40 Mg Tablet.dr, 40 MG PO DAILY Prescribed by: DALLIN FLORES on 01/01/16 1350 Sucralfate 1 Gm Tablet, 1 GM PO QID Prescribed by: DALLIN FLORES on 01/01/16 1350 Sulfamethoxazole/Trimethoprim 1 Each Tablet, 1 EACH PO BID Prescribed by: RUY DAMON MD on 05/29/19 1205 Patient Home Medication List Home Medication List Reviewed: Yes Review of Systems Review of Systems Constitutional: no symptoms reported EENTM: no symptoms reported Respiratory: no symptoms reported Cardiovascular: no symptoms reported Genitourinary: no symptoms reported Musculoskeletal: see HPI Skin: no symptoms reported Psychiatric/Neurological: No Symptoms Reported All Other Systems Reviewed Negative Unless Noted: Yes Past Kwnniig-Mufrmi-Lptydi Hx Patient Social History 2nd Hand Smoke Exposure: No Recent Foreign Travel: No Contact w/Someone Who Travel: No Recent Hopitalizations: No Seasonal Allergies Seasonal Allergies: No Past Medical History Surgeries: Yes Orthopedic Respiratory: No Cardiac: Yes Hypertension Neurological: No Genitourinary: No Gastrointestinal: No Musculoskeletal: Yes Degenerate Disk Disease, Arthritis Endocrine: No HEENT: No Cancer: No Psychosocial: No Integumentary: No Blood Disorders: No Physical Exam Vital Signs Vital Signs - First Documented 08/21/19 20:48 Temp 37.1 Pulse 91 Resp 18 B/P (MAP) 178/90 (119) Pulse Ox 98 O2 Delivery Room Air Capillary Refill : Height, Weight, BMI Height: 5'8.00" Weight: 226lbs. 0.0oz. 102.669806uv; 37.00 BMI Method: General Appearance: No Apparent Distress, WD/WN HEENT: PERRL/EOMI Neck: Full Range of Motion Respiratory: Lungs Clear Cardiovascular: Regular Rate, Rhythm Extremity: Other (edema and ecchymosis present about the left ankle. 2+ dorsalis pedis pulses are present. Sensation and light touch is intact over all dermatomes. There are old, healed scars from prior surgery on this foot) Neurologic/Psychiatric: Alert, Oriented x3 Skin: Normal Color, Warm/Dry Progress/Results/Core Measures Suspected Sepsis SIRS Temperature: Pulse: Respiratory Rate: Blood Pressure / Mean: Results/Orders My Orders Orders - KENDALL VILLA DO Ankle 3 View Left (08/21/19 20:29) Hydromorphone Injection (Dilaudid Inject (08/21/19 21:15) Alfredo Bandage (08/21/19 21:14) Medications Given in ED Current Medications Medications Dose Ordered Sig/Odilon Route Start Time Stop Time Status Last Admin Dose Admin Hydromorphone HCl 1.5 mg ONCE ONCE IM 08/21/19 21:15 08/21/19 21:16 DC 08/21/19 21:27 1.5 MG Vital Signs/I&O 08/21/19 20:48 Temp 37.1 Pulse 91 Resp 18 B/P (MAP) 178/90 (119) Pulse Ox 98 O2 Delivery Room Air Capillary Refill : Progress Note : Time: 21:33 Progress Note ED summary: Patient is evaluated in the emergency department after falling and sustaining injury to the left ankle. X-ray did not show acute fracture but possibly showed some widening of the mortise joint. These findings were discussed with the patient. He was placed in an Alfredo wrap as well as a cam boot walker. Patient was recommended to follow up with orthopedics. He already takes pain medication at home. He takes 15 mg of oxycodone twice daily on average for control of chronic pain. In the ER, he was given a dose of Dilaudid intramuscularly and recommended to continue his normal pain medications at home. Crutches were also provided. Departure Impression Primary Impression: Sprain of ankle Disposition: HOME, SELF-CARE Condition: Improved Departure-Patient Inst. Referrals: NORA MACDONALD MD (PCP/Family) Primary Care Physician KENDALL VILLA DO Aug 21, 2019 20:29
--- NOTE | 2019-08-21 20:51 | Diagnostic Imaging Report ---
CLINICAL INDICATION: Patient fell and hurt left ankle. EXAM: X-ray of the left ankle, 3 views. COMPARISON: None. FINDINGS: There is soft tissue swelling seen adjacent to the ankle with the medial aspect of the ankle affected the most. There is small calcification seen posterior to the distal aspect of the tibia which is suspected to be chronic. Correlation for pain in this region would better evaluate. There is asymmetry of the ankle mortise with the medial aspect of the ankle mortise more widened than the other parts of the ankle mortise. The remainder of the left ankle shows no other concern for acute abnormality. There is mildly hypertrophic calcaneal spurs at the plantar and Achilles attachment. There is spurring of the dorsal midfoot. Incompletely imaged screws and pins involving the 1st metatarsal bone and 2nd metatarsal bone. IMPRESSION: 1: There is soft tissue swelling adjacent to the left ankle. There is concern for mild widening of the medial ankle mortise region. Soft tissue and/or ligamentous injury may be considered. Clinical correlation would better evaluate. Nonemergent MRI of the left ankle would better evaluate if necessary. 2: There is a small calcification seen posterior to the distal tibia which is suspected to be chronic. Correlation for pain in this region would better evaluate. 3: Mild degenerative disease of the left ankle. Dictated by: Dictated on workstation # [id number]
[2019-08-21] MEDS ORDERED: HYDROmorphone 2 MG/ML VIAL (DILAUDID) IM ONE (21:15)
[2019-08-21 21:35] VITALS: BP 178/90
== END 2019-08-21 21:35 | disposition home or self-care (01) ==
LOC: EDUNIT# 20:19 → ER FS 20:21
DX: S93.402A Sprain of unspecified ligament of left ankle, initial encounter (principal); I10 Essential (primary) hypertension; Z88.5 Allergy status to narcotic agent; X50.1XXA Overexertion from prolonged static or awkward postures, initial encounter
CPT/HCPCS: 73610

== ENCOUNTER → 2019-09-01 | Outpatient (CLI) | payer MEDICARE, MEDICAID ==
--- NOTE | 2019-09-01 14:02 | Diagnostic Imaging Report ---
INDICATION: Followup fracture. TIME OF EXAM: 1:50 PM There is an obliquely oriented fracture line through the neck of the proximal fibula. No significant callus formation is seen. Alignment is anatomic. The tibia appears to be intact. Alignment of the ankle and knee is normal. Distal tibia and fibula appear to be intact. IMPRESSION: Obliquely oriented proximal fibular fracture. Dictated by: Dictated on workstation # [id number]
--- NOTE | 2019-09-01 14:18 | Diagnostic Imaging Report ---
INDICATION: Left ankle injury AP, oblique and lateral views of the left ankle are obtained. There is irregularity involving the malleoli bilaterally. No fracture line is identified to indicate an acute fracture. There is ankle swelling most pronounced medially. There is questionable widening of the medial ankle mortise. Surgical changes are noted in the 1st and 2nd metatarsals. IMPRESSION: No definite acute fractures identified however there is widening of the medial ankle mortise possibly due to underlying ligamentous injury. Dictated by: Dictated on workstation # [id number]
== END ==
LOC: RAD FS 13:33
PROVIDERS: ATTEND Nurse Practitioner
DX: S82.432A Displaced oblique fracture of shaft of left fibula, initial encounter for closed fracture (principal); S93.492A Sprain of other ligament of left ankle, initial encounter; S82.832A Other fracture of upper and lower end of left fibula, initial encounter for closed fracture; X58.XXXA Exposure to other specified factors, initial encounter
CPT/HCPCS: 73590; 73610

== ENCOUNTER 2020-09-03 11:42 | Emergency (ER) | payer MEDICARE, MEDICAID ==
[~2020-09-03] VITALS: Ht 172.7 cm; Wt 104.5 kg
[~2020-09-03 11:42] MED LIST changes: +AMLO-250 PO; -AMLO5TAB9 PO
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
[2020-09-03 12:43] VITALS: BP 133/88
== END 2020-09-03 12:43 | disposition home or self-care (01) ==
LOC: EDUNIT# 11:42 → ER FS 11:45
DX: G89.29 Other chronic pain (principal); I10 Essential (primary) hypertension; E66.9 Obesity, unspecified; M79.672 Pain in left foot; M79.671 Pain in right foot; Z68.37 Body mass index [BMI] 37.0-37.9, adult; Z88.5 Allergy status to narcotic agent
CPT/HCPCS: 99283

== ENCOUNTER → 2020-09-15 | Outpatient (CLI) | payer MEDICARE, MEDICAID | LOC: SLEEP 21:37 | PROVIDERS: ATTEND Otolaryngology Otolaryngology/Facial Plastic Surgery | DX: G47.33 Obstructive sleep apnea (adult) (pediatric) (principal); G47.31 Primary central sleep apnea | CPT/HCPCS: 95811 ==

== ENCOUNTER 2020-12-07 22:20 | Day surgery (SDC) | payer MEDICARE, MEDICAID ==
[~2020-12-07] VITALS: Ht 172.7 cm; Wt 112.0 kg
[~2020-12-07 22:20] MED LIST changes: -SULF1TAB35 PO; +SULF1TAB38 PO
--- NOTE | 2020-12-07 22:50 | ED General ---
General Chief Complaint: Abdominal/GI Problems Stated Complaint: BLOOD IN SALIVA,ABD PAIN Nursing Triage Note: Pt complaining of coughing up blood intermittenly over the past few days. Pt said he started having abdominal pain about a week ago and went to his primary for it. Pt was started on Flagyl and Cipro and states that his bowels are back to normal but he still has the mid abd pain. Source of Information: Patient, Old Records History of Present Illness Date Seen by Provider: Dec 07, 2020 Time Seen by Provider: 22:28 Initial Comments 60-year-old male presenting with complaints of epigastric and right upper quadrant abdominal pain. He states that this started over a week ago and he had gone to see Dr. Yeung in the clinic because he was having difficulty with bowel movements. They placed him on Flagyl and Cipro which has helped with his bowel movements but he was still having the pain. During this entire time he has had intermittent coughing up blood after eating spicy or greasy foods. This seems to be worse after eating spicy foods. Tonight he has had chicken wings with hot sauce and when he went to bed he had woke up with blood in his mouth and nose. He does have a history of prior endoscopy showing hiatal hernia, gastritis with peptic ulcer disease. He does not routinely take Protonix like he should. He denies feeling short of breath. He has had no dark tarry stools. Timing/Duration: 1 Week Associated Systoms: No Chest Pain; Cough (Coughing up some blood after eating spicy foods); No Diaphoresis, No Fever/Chills, No Headaches, No Loss of Appetite, No Malaise, No Nausea/Vomiting, No Seizure, No Shortness of Air, No Syncope, No Weakness Allergies and Home Medications Allergies Coded Allergies: morphine (Verified Allergy, Intermediate, ITCHING, 12/21/15) Home Medications Amlodipine Besylate 5 Mg Tablet, 5 MG PO DAILY, (Reported) Cetirizine HCl 10 Mg Tablet, 10 MG PO DAILY, (Reported) Ibuprofen 800 Mg Tablet, 800 MG PO Q8H PRN for PAIN, (Reported) Meloxicam 15 Mg Tablet, 15 MG PO DAILY, (Reported) Oxycodone HCl 60 Mg Tab.er.12h, 60 MG PO Q12H, (Reported) Oxycodone HCl 15 Mg Tablet, 15 MG PO PRN PRN for PAIN, (Reported) Pantoprazole Sodium 40 Mg Tablet.dr, 40 MG PO DAILY Prescribed by: DALLIN FLORES on 01/01/16 1350 Sucralfate 1 Gm Tablet, 1 GM PO QID Prescribed by: DALLIN FLORES on 01/01/16 1350 Sulfamethoxazole/Trimethoprim 1 Each Tablet, 1 EACH PO BID Prescribed by: RUY DAMON MD on 05/29/19 1205 Patient Home Medication List Home Medication List Reviewed: Yes Review of Systems Review of Systems Constitutional: No chills, No diaphoresis, No dizziness, No fever EENTM: no symptoms reported Respiratory: see HPI Cardiovascular: No chest pain Gastrointestinal: see HPI Genitourinary: no symptoms reported Musculoskeletal: no symptoms reported Skin: no symptoms reported Psychiatric/Neurological: No Symptoms Reported Past Kwyboie-Edbkqu-Vwpfni Hx Patient Social History Tobacco Use?: No Use of E-Cig and/or Vaping dev: No Substance use?: No Alcohol Use?: No Pt feels they are or have been: No Seasonal Allergies Seasonal Allergies: No Past Medical History Surgeries: Yes (Feet reconstructed) Orthopedic Respiratory: Yes (RENU) Sleep Apnea Cardiac: Yes Hypertension Neurological: No Genitourinary: No Gastrointestinal: Yes (Gastritis) Esophagitis Musculoskeletal: Yes Degenerate Disk Disease, Arthritis, Chronic Back Pain Endocrine: No HEENT: No Cancer: No Psychosocial: No Integumentary: No Blood Disorders: No Physical Exam Vital Signs Vital Signs - First Documented 12/07/20 22:28 Temp 36.5 Pulse 80 Resp 18 B/P (MAP) 147/85 (105) Pulse Ox 95 O2 Delivery Room Air Capillary Refill : Less Than 3 Seconds Height, Weight, BMI Height: 5'8.00" Weight: 226lbs. 0.0oz. 102.655651wo; 35.00 BMI Method: General Appearance: No Apparent Distress, Obese HEENT: PERRL/EOMI, Pharynx Normal Neck: Full Range of Motion, Non Tender, Supple Respiratory: Chest Non Tender, Lungs Clear, Normal Breath Sounds, No Accessory Muscle Use, No Respiratory Distress Cardiovascular: Regular Rate, Rhythm, Normal Peripheral Pulses Gastrointestinal: Soft, Abnormal Bowel Sounds (Hyperactive), Distended; No Rebound; Tenderness (Right upper quadrant and epigastric area. Positive Felix's sign) Rectal: Deferred Extremity: Normal Capillary Refill, No Pedal Edema Neurologic/Psychiatric: Alert, Oriented x3 Skin: Normal Color, Warm/Dry Progress/Results/Core Measures Suspected Sepsis SIRS Temperature: Pulse: 80 Respiratory Rate: 18 Laboratory Tests 12/07/20 22:37: White Blood Count 7.5 Blood Pressure 147 /85 Mean: 105 Laboratory Tests 12/07/20 22:37: Creatinine 0.96, INR Comment 1.1, Platelet Count 253, Total Bilirubin 0.3 Results/Orders Lab Results Laboratory Tests Test 12/07/20 22:37 12/08/20 00:10 Range/Units White Blood Count 7.5 4.3-11.0 10^3/uL Red Blood Count 4.26 L 4.35-5.85 10^6/uL Hemoglobin 12.7 L 13.3-17.7 G/DL Hematocrit 38 L 40-54 % Mean Corpuscular Volume 90 80-99 FL Mean Corpuscular Hemoglobin 30 25-34 PG Mean Corpuscular Hemoglobin Concent 33 32-36 G/DL Red Cell Distribution Width 12.6 10.0-14.5 % Platelet Count 253 130-400 10^3/uL Mean Platelet Volume 9.5 7.4-10.4 FL Immature Granulocyte % (Auto) 0 % Neutrophils (%) (Auto) 56 42-75 % Lymphocytes (%) (Auto) 28 12-44 % Monocytes (%) (Auto) 12 0-12 % Eosinophils (%) (Auto) 3 0-10 % Basophils (%) (Auto) 1 0-10 % Neutrophils # (Auto) 4.2 1.8-7.8 X 10^3 Lymphocytes # (Auto) 2.1 1.0-4.0 X 10^3 Monocytes # (Auto) 0.9 0.0-1.0 X 10^3 Eosinophils # (Auto) 0.2 0.0-0.3 10^3/uL Basophils # (Auto) 0.1 0.0-0.1 10^3/uL Immature Granulocyte # (Auto) 0.0 0.0-0.1 10^3/uL Prothrombin Time 14.8 H 12.2-14.7 SEC INR Comment 1.1 0.8-1.4 Activated Partial Thromboplast Time 31 24-35 SEC Sodium Level 137 135-145 MMOL/L Potassium Level 4.0 3.6-5.0 MMOL/L Chloride Level 101 98-107 MMOL/L Carbon Dioxide Level 29 21-32 MMOL/L Anion Gap 7 5-14 MMOL/L Blood Urea Nitrogen 10 7-18 MG/DL Creatinine 0.96 0.60-1.30 MG/DL Estimat Glomerular Filtration Rate 97 BUN/Creatinine Ratio 10 Glucose Level 119 H 70-105 MG/DL Calcium Level 9.5 8.5-10.1 MG/DL Corrected Calcium 9.5 8.5-10.1 MG/DL Total Bilirubin 0.3 0.1-1.0 MG/DL Aspartate Amino Transf (AST/SGOT) 16 5-34 U/L Alanine Aminotransferase (ALT/SGPT) 15 0-55 U/L Alkaline Phosphatase 80 40-136 U/L Total Protein 7.5 6.4-8.2 GM/DL Albumin 4.0 3.2-4.5 GM/DL Lipase 12 8-78 U/L Urine Color YELLOW Urine Clarity CLEAR Urine pH 7.0 5-9 Urine Specific [place] 1.010 L 1.016-1.022 Urine Protein NEGATIVE NEGATIVE Urine Glucose (UA) NEGATIVE NEGATIVE Urine Ketones NEGATIVE NEGATIVE Urine Nitrite NEGATIVE NEGATIVE Urine Bilirubin NEGATIVE NEGATIVE Urine Urobilinogen 0.2 < = 1.0 MG/DL Urine Leukocyte Esterase NEGATIVE NEGATIVE Urine RBC (Auto) NEGATIVE NEGATIVE Urine RBC 2-5 H /HPF Urine WBC NONE /HPF Urine Squamous Epithelial Cells 2-5 /HPF Urine Crystals NONE /LPF Urine Bacteria NEGATIVE /HPF Urine Casts NONE /LPF Urine Mucus NEGATIVE /LPF Urine Culture Indicated NO My Orders Orders - LIZBETH ENRIQUEZ MD Ed Iv/Invasive Line Start (12/07/20 22:39) Comprehensive Metabolic Panel (12/07/20 22:59) Lipase (12/07/20 22:59) Ua Culture If Indicated (12/07/20 22:59) Cbc With Automated Diff (12/07/20 22:59) Protime With Inr (12/07/20 22:59) Partial Thromboplastin Time (12/07/20 22:59) Ct Chest/Abdomen/Pelvis W (12/07/20 22:59) Ns Iv 1000 Ml (Sodium Chloride 0.9%) (12/07/20 22:59) Pantoprazole Injection (Protonix Injecti (12/07/20 22:59) Ketorolac Injection (Toradol Injection) (12/07/20 22:59) Iohexol Injection (Omnipaque 350 Mg/Ml 1 (12/07/20 23:15) Received Contrast (Hold Metformin- Contr (12/07/20 23:15) Ns (Ivpb) (Sodium Chloride 0.9% Ivpb Bag (12/07/20 23:15) Lactated Ringers (Lr 1000 Ml Iv Solution (12/08/20 01:30) Medications Given in ED Current Medications Medications Dose Ordered Sig/Odilon Route Start Time Stop Time Status Last Admin Dose Admin Iohexol 100 ml ONCE ONCE IV 12/07/20 23:15 12/07/20 23:16 DC 12/07/20 23:38 100 ML Sodium Chloride 100 ml ONCE ONCE IV 12/07/20 23:15 12/07/20 23:16 DC 12/07/20 23:38 80 ML Vital Signs/I&O 12/07/20 12/08/20 22:28 01:42 Temp 36.5 Pulse 80 73 Resp 18 16 B/P (MAP) 147/85 (105) 148/78 Pulse Ox 95 97 O2 Delivery Room Air Room Air 12/08/20 00:00 Intake Total 1000 ml Balance 1000 ml Capillary Refill : Less Than 3 Seconds Blood Pressure Mean: 105 Progress Note #1: Progress Note Check basic labs as well as urine and lipase. CT scan of his chest since he complains of coughing up blood, abdomen and pelvis since he was having right upper quadrant and epigastric pain. Try IV fluids for hydration, Toradol for pain, Protonix for pain. Differential diagnosis includes cholecystitis, gastritis, peptic ulcer disease, esophagitis, diverticulitis, colitis, bowel obstruction Progress Note #2: Progress Note Labs appear stable without acute significant normality on CBC, chemistry, coags. CT scan showed mild bilateral atelectasis without consolidation, pleural effusion or pneumothorax on his chest. He had mild nonspecific thickening of the partially contracted debris-filled gallbladder. There was haziness in the gallbladder fossa. He had no bowel obstruction free air or diverticulitis or appendicitis. There was a left renal cortical scarring. Aortic atherosclerosis without abdominal aortic aneurysm. Progress Note #3: Progress Note d/w Dr. Luis as lead radiation therapist surgeon and since pt was still having RUQ pain with positive Felix's sign could admit to [facility] and consult him to see about taking his gallbladder out November,. Will check with nursing bookkeeping clerks supervisor about a bed and provider there is one available will call Dr. Hagan covering for [facility] service about admit. [phone] bed available so d/w Dr. Hagan about pt for admit to [facility] and consult surgery. Continue antibiotics by IV and for his chronic pain will order Dilaudid 1 mg q 2 hours prn pain greater than 6 since he usually takes Oxycontin 60 mg Diagnostic Imaging Diagonstic Imaging: CT Plain Films/CT/US/NM/MRI: chest, abdomen, pelvis Comments Impression: 1. Chest shows mild bilateral atelectasis. No consolidation, significant pleural effusions, or pneumothorax. 2. Mild nonspecific thickening of the partially contracted debris-filled gallbladder. Haziness in the gallbladder fossa can be seen in the setting of acute cholecystitis. Consider correlation with serum biliary enzymes. 3. Nodular hepatic contour. 4. No bowel obstruction, free air, diverticulitis or appendicitis. 5. Left renal cortical scar and suspected calyceal diverticulum. No hydronephrosis. 6. Aortic atherosclerosis. No abdominal aortic aneurysm. Read by Stat Rad radiologist Bonnie Gutierrez MD. at [phone] and faxed at [phone] [facility]. [place], [place] NAME: [facility]H PAVON [facility] REC#: [id number] PT STATUS: REG ER : 1960 PHYSICIAN: LIZBETH ENRIQUEZ MD ADMIT DATE: 12/07/20/ER FS Draft Date of Exam:12/07/20 CT CHEST/ABDOMEN/PELVIS W PROCEDURE: CT chest, abdomen and pelvis with contrast. TECHNIQUE: Multiple contiguous axial images were obtained through the chest, abdomen, and pelvis after the administration of intravenous contrast. Auto Exposure Controls were utilized during the CT exam to meet ALARA standards for radiation dose reduction. INDICATION: Hemoptysis and right upper quadrant abdominal pain. CT CHEST: There is mild linear atelectasis and/or scarring in the visualized lung bases. There is no pleural or pericardial fluid. No pathologic adenopathy is identified. There is enlargement of the left lobe of the thyroid gland likely related to goiter. IMPRESSION: Dependent atelectasis and/or scarring in the visualized lung bases with probable left lobe thyroid goiter. CT ABDOMEN AND PELVIS: Comparison: 06/23/2019. No focal hepatic abnormality is identified. There is heterogeneous density within the lumen of the gallbladder with suggestion of gallbladder wall thickening. There may be mild pericholecystic inflammation and cholecystitis is not excluded. Extrahepatic ducts are mildly enlarged. This could be related to previous stone passage. No pancreatic or adrenal gland lesion is identified. There is a small hiatal hernia. Spleen is unremarkable. Several cysts are seen in the upper poles of the kidneys without definite solid renal mass or hydronephrosis. No free fluid is seen within the abdomen or pelvis. There is no evidence of appendiceal inflammation. Unopacified bladder is unremarkable in appearance. There is localized L4-L5 degenerative facet arthropathy with degenerative findings also present at the L5-S1 level. IMPRESSION: 1. Abnormal appearance of gallbladder which may reflect acute cholecystitis and clinical correlation is recommended. This could be further assessed with ultrasonography, if warranted. 2. Otherwise, no acute abnormality is seen within the abdomen or pelvis. Dictated on workstation # [id number] Dict: 12/08/20 0017 Trans: 12/08/20 0031 [facility] [id number] Interpreted by: RYAN SANTIAGO MD Electronically signed by: Reviewed: Reviewed [facility] Study, Reviewed by Me Departure Communication (Admissions) Time/Spoke to Admitting Phy: 01:26 d/w Dr. Hagan for [facility] service and will admit for medical management and clearance with consult to Dr. Luis for surgery Thursday Time/Spoke to Consulting Phy: 00:47 d/w Dr. Luis for surgery and he advised with pt still having pain and findings for cholecystitis on CT will admit and keep NPO to plan on surgery later this morning. Admit to [facility] medical service for medical management and clearance with his history of htn, renu, hiatal hernia with gerd/esophagitis, chronic pain Impression Primary Impression: Cholecystitis, acute with cholelithiasis Qualified Codes: K80.00 - Calculus of gallbladder with acute cholecystitis without obstruction Additional Impressions: Right upper quadrant abdominal pain Epigastric abdominal pain Hiatal hernia with GERD and esophagitis Disposition: 30 STILL A PATIENT Condition: Stable Admissions Decision to Admit Reason: Admit from ER (General) Decision to Admit/Date: Dec 08, 2020 Time/Decision to Admit Time: 01:26 Departure-Patient Inst. Referrals: NORA YEUNG MD (PCP/Family) Primary Care Physician LIZBETH ENRIQUEZ MD Dec 07, 2020 22:50
[2020-12-07] MEDS ORDERED: KETOROLAC 30 MG/ML VIAL IVP STA (22:59)
[2020-12-07] MEDS ORDERED: NS IV 1000 ML 1,000 ML IV STA (22:59)
[2020-12-07] MEDS ORDERED: PANTOPRAZOLE 40 MG (PROTONIX) VIAL IV STA (22:59)
[2020-12-07 23:05] LABS: HEMATOCRIT 38 % (40-54); HEMOGLOBIN 12.7 G/DL (13.3-17.7); MEAN CORPUSCULAR HEMOGLOBIN 30 PG (25-34); MEAN CORPUSCULAR HGB CONC 33 G/DL (32-36); MEAN CORPUSCULAR VOLUME 90 FL (80-99); PLATELET COUNT 253 10^3/uL (130-400); WHITE BLOOD COUNT 7.5 10^3/uL (4.3-11.0)
[2020-12-07 23:06] LABS: BASOPHILS # (AUTO) 0.1 10^3/uL (0.0-0.1); BASOPHILS % (AUTO) 1 % (0-10); BILIRUBIN,TOTAL 0.3 MG/DL (0.1-1.0); CALCIUM 9.5 MG/DL (8.5-10.1); CREATININE SERUM 0.96 MG/DL (0.60-1.30); EOSINOPHILS # (AUTO) 0.2 10^3/uL (0.0-0.3); EOSINOPHILS % (AUTO) 3 % (0-10); LYMPHOCYTES # (AUTO) 2.1 X 10^3 (1.0-4.0); LYMPHOCYTES % (AUTO) 28 % (12-44); MEAN PLATELET VOLUME 9.5 FL (7.4-10.4); MONOCYTES # (AUTO) 0.9 X 10^3 (0.0-1.0); MONOCYTES % (AUTO) 12 % (0-12); NEUTROPHILS # (AUTO) 4.2 X 10^3 (1.8-7.8); NEUTROPHILS % (AUTO) 56 % (42-75)
[2020-12-07 23:07] LABS: TOTAL PROTEIN 7.5 GM/DL (6.4-8.2)
[2020-12-07] MEDS ORDERED: IOHEXOL 350 MG/ML 100 ML (OMNIPAQUE 350) VIAL IV ONE (23:15)
[2020-12-07] MEDS ORDERED: NS 100 ML (IVPB) BAG IV ONE (23:15)
[2020-12-07] MEDS ORDERED: HOLD METFORMIN - RECEIVED CONTRAST 20 ML VIAL IV SCH (23:15)
[2020-12-07 23:18] LABS: INR 1.1 (0.8-1.4); PROTHROMBIN TIME PATIENT 14.8 SEC (12.2-14.7)
[2020-12-08] VITALS (12 sets, daily range): BP systolic 101–169; BP diastolic 69–92
[2020-12-08 00:26] LABS: COLOR,URINE YELLOW
[2020-12-08 00:27] LABS: BACTERIA,URINE NEGATIVE /HPF; BILIRUBIN,URINE NEGATIVE (NEGATIVE); CLARITY,URINE CLEAR; GLUCOSE, URINE (UA) NEGATIVE (NEGATIVE); KETONES,URINE NEGATIVE (NEGATIVE); LEUKOCYTE ESTERASE ,URINE NEGATIVE (NEGATIVE); NITRITE,URINE NEGATIVE (NEGATIVE); PROTEIN,URINE NEGATIVE (NEGATIVE)
--- NOTE | 2020-12-08 00:31 | Diagnostic Imaging Report ---
PROCEDURE: CT chest, abdomen and pelvis with contrast. TECHNIQUE: Multiple contiguous axial images were obtained through the chest, abdomen, and pelvis after the administration of intravenous contrast. Auto Exposure Controls were utilized during the CT exam to meet ALARA standards for radiation dose reduction. INDICATION: Hemoptysis and right upper quadrant abdominal pain. CT CHEST: There is mild linear atelectasis and/or scarring in the visualized lung bases. There is no pleural or pericardial fluid. No pathologic adenopathy is identified. There is enlargement of the left lobe of the thyroid gland likely related to goiter. IMPRESSION: Dependent atelectasis and/or scarring in the visualized lung bases with probable left lobe thyroid goiter. CT ABDOMEN AND PELVIS: Comparison: 06/23/2019. No focal hepatic abnormality is identified. There is heterogeneous density within the lumen of the gallbladder with suggestion of gallbladder wall thickening. There may be mild pericholecystic inflammation and cholecystitis is not excluded. Extrahepatic ducts are mildly enlarged. This could be related to previous stone passage. No pancreatic or adrenal gland lesion is identified. There is a small hiatal hernia. Spleen is unremarkable. Several cysts are seen in the upper poles of the kidneys without definite solid renal mass or hydronephrosis. No free fluid is seen within the abdomen or pelvis. There is no evidence of appendiceal inflammation. Unopacified bladder is unremarkable in appearance. There is localized L4-L5 degenerative facet arthropathy with degenerative findings also present at the L5-S1 level. IMPRESSION: 1. Abnormal appearance of gallbladder which may reflect acute cholecystitis and clinical correlation is recommended. This could be further assessed with ultrasonography, if warranted. 2. Otherwise, no acute abnormality is seen within the abdomen or pelvis. Dictated by: Dictated on workstation # [id number]
[2020-12-08] MEDS ORDERED: LACTATED RINGERS 1,000 ML IV SCH ×2 (01:30→03:00)
[2020-12-08] MEDS ORDERED: METOCLOPRAMIDE INJ 10 MG/2 ML (REGLAN) IVP PRN (03:00)
[2020-12-08] MEDS ORDERED: metroNIDAZOLE 500 MG/100 ML IVPB (PRE-MIX) IV SCH (03:00)
[2020-12-08] MEDS: HYDROmorphone 2 MG/ML VIAL (DILAUDID) IV PRN ×4 (03:23→16:13)
[2020-12-08] MEDS ORDERED: RT-ALBUTEROL SULF 2.5 MG/3 ML PRE-MIX VIAL INH PRN (05:15)
[2020-12-08 05:53] LABS: BASOPHILS % (AUTO) 1 % (0-10); EOSINOPHILS # (AUTO) 0.2 10^3/uL (0.0-0.3); EOSINOPHILS % (AUTO) 4 % (0-10); HEMATOCRIT 35 % (40-54); HEMOGLOBIN 11.4 g/dL (13.3-17.7); LYMPHOCYTES # (AUTO) 1.6 10^3/uL (1.0-4.0); LYMPHOCYTES % (AUTO) 29 % (12-44); MEAN CORPUSCULAR HEMOGLOBIN 30 pg (25-34); MEAN CORPUSCULAR HGB CONC 33 g/dL (32-36); MEAN CORPUSCULAR VOLUME 91 fL (80-99); MEAN PLATELET VOLUME 9.7 fL (9.0-12.2); MONOCYTES # (AUTO) 0.7 10^3/uL (0.0-1.0); MONOCYTES % (AUTO) 13 % (0-12); NEUTROPHILS # (AUTO) 3.1 10^3/uL (1.8-7.8); NEUTROPHILS % (AUTO) 54 % (42-75); PLATELET COUNT 214 10^3/uL (130-400); WHITE BLOOD COUNT 5.7 10^3/uL (4.3-11.0)
[2020-12-08 06:04] LABS: ALBUMIN 3.4 GM/DL (3.2-4.5)
[2020-12-08 06:05] LABS: CALCIUM 8.7 MG/DL (8.5-10.1)
[2020-12-08 06:07] LABS: TOTAL PROTEIN 6.3 GM/DL (6.4-8.2)
[2020-12-08 06:08] LABS: BILIRUBIN,TOTAL 0.4 MG/DL (0.1-1.0)
[2020-12-08 06:10] LABS: CREATININE SERUM 0.8 MG/DL (0.60-1.30)
[2020-12-08] MEDS ORDERED: RT-ALBUTEROL SULF 2.5 MG/3 ML PRE-MIX VIAL INH SCH (08:00)
[2020-12-08] MEDS ORDERED: PANTOPRAZOLE 40 MG (PROTONIX) VIAL IV SCH (09:00)
[2020-12-08] MEDS ORDERED: CIPROFLOXACIN 400 MG/D5W 200 ML (PRE-MIX) IV SCH (09:00)
[2020-12-08] MEDS ORDERED: LIDOCAINE/EPI 1%-1:100,000 (XYLOCAINE) 20ML ONE (09:29)
--- NOTE | 2020-12-08 09:29 | Consultation - Surgery ---
History of Present Illness History of Present Illness Patient Consulted On(shari/time) 12/08/20 09:24 Time Seen by Provider: 08:54 History of Present Illness Surgery asked to consult regarding RUQ pain, r/o cholecystitis. HPI per ED: Pt complaining of coughing up blood intermittenly over the past few days. Pt said he started having abdominal pain about a week ago and went to his primary for it. Pt was started on Flagyl and Cipro and states that his bowels are back to normal but he still has the mid abd pain. 60-year-old male presenting with complaints of epigastric and right upper quadrant abdominal pain. He states that this started over a week ago and he had gone to see Dr. Yeung in the clinic because he was having difficulty with bowel movements. They placed him on Flagyl and Cipro which has helped with his bowel movements but he was still having the pain. During this entire time he has had intermittent coughing up blood after eating spicy or greasy foods. This seems to be worse after eating spicy foods. Tonight he has had chicken wings with hot sauce and when he went to bed he had woke up with blood in his mouth and nose. He does have a history of prior endoscopy showing hiatal hernia, gastritis with peptic ulcer disease. He does not routinely take Protonix like he should. He denies feeling short of breath. He has had no dark tarry stools. Timing/Duration: 1 Week Associated Systoms: No Chest Pain; Cough (Coughing up some blood after eating spicy foods); No Diaphoresis, No Fever/Chills, No Headaches, No Loss of Appetite, No Malaise, No Nausea/Vomiting, No Seizure, No Shortness of Air, No Syncope, No Weakness When I saw pt he stated he was still having pretty severe pain in RUQ, requiring IV pain meds. When asked he states he has never had pain on the right side, "left side when I get bound up from pain meds". He was told about a year ago that he had gallstones, but denies any symptoms related to gallbladder. He states EGD and colonoscopy within past 1-2 years were normal; will have to get records to confirm this. Allergies and Home Medications Allergies Coded Allergies: morphine (Verified Allergy, Intermediate, ITCHING, 12/21/15) Home Medications Amlodipine Besylate 5 Mg Tablet, 5 MG PO DAILY, (Reported) Cetirizine HCl 10 Mg Tablet, 10 MG PO DAILY, (Reported) Ibuprofen 800 Mg Tablet, 800 MG PO Q8H PRN for PAIN, (Reported) Meloxicam 15 Mg Tablet, 15 MG PO DAILY, (Reported) Oxycodone HCl 60 Mg Tab.er.12h, 60 MG PO Q12H, (Reported) Oxycodone HCl 15 Mg Tablet, 15 MG PO PRN PRN for PAIN, (Reported) Pantoprazole Sodium 40 Mg Tablet.dr, 40 MG PO DAILY Prescribed by: DALLIN FLORES on 01/01/16 1350 Sucralfate 1 Gm Tablet, 1 GM PO QID Prescribed by: DALLIN FLORES on 01/01/16 1350 Sulfamethoxazole/Trimethoprim 1 Each Tablet, 1 EACH PO BID Prescribed by: RUY DAMON MD on 05/29/19 1205 Patient Home Medication List Home Medication List Reviewed: Yes Past Ricuajj-Iebtni-Oflojk Hx Patient Social History Smoking Status: Former Smoker (states he smoked at least 1ppd and quit just about 10 years ago) 2nd Hand Smoke Exposure: No Recent Hopitalizations: No Alcohol Use?: Yes Have you traveled recently?: No Seasonal Allergies Seasonal Allergies: No Surgeries History of Surgeries: Yes (Feet reconstructed) Surgeries: Orthopedic Respiratory History of Respiratory Disorde: Yes (RENU) Respiratory Disorders: Sleep Apnea Cardiovascular History of Cardiac Disorders: Yes Cardiac Disorders: Hypertension Neurological History of Neurological Disord: No Genitourinary History of Genitourinary Disor: No Gastrointestinal History of Gastrointestinal Di: Yes (Gastritis) Gastrointestinal Disorders: Esophagitis Musculoskeletal History of Musculoskeletal Dis: Yes Musculoskeletal Disorders: Degenerate Disk Disease, Arthritis, Chronic Back Pain Endocrine History of Endocrine Disorders: No HEENT History of HEENT Disorders: No Loss of Vision: Denies Hearing Impairment: Denies Cancer History of Cancer: No Psychosocial History of Psychiatric Problem: No Integumentary History of Skin or Integumenta: No Blood Transfusions History of Blood Disorders: No Family Medical History Significant Family History: Heart Disease, Diabetes, Hypertension Review of Systems-General Constitutional: No chills, No diaphoresis; malaise EENTM: epistaxis; No blurred vision, No double vision, No mouth pain, No throat swelling Respiratory: cough; No dyspnea on exertion, No short of breath, No wheezing Cardiovascular: No chest pain, No palpitations Gastrointestinal: abdominal pain; No jaundice, No melena; nausea, vomiting Genitourinary: No dysuria, No frequency, No hematuria Musculoskeletal: back pain, joint pain, joint swelling, muscle stiffness Skin: No change in color, No change in hair/nails Psychiatric/Neurological: Denies Anxiety, Denies Depressed, Denies Seizure, Denies Tremors Other pt denies any hx of abnormal bleeding or bruising Physical Exam-General Problems Physical Exam Vital Signs Vital Signs - First Documented 12/07/20 12/08/20 22:28 04:51 Temp 36.5 Pulse 80 Resp 18 B/P (MAP) 147/85 (105) Pulse Ox 95 O2 Delivery Room Air FiO2 21 Capillary Refill : Less Than 3 Seconds General Appearance: WD/WN, no apparent distress Eyes: Bilateral Eye PERRL, Bilateral Eye EOMI HEENT: pharynx normal; No scleral icterus (R), No scleral icterus (L), No pale conjunctivae (R), No pale conjunctivae (L) Neck: non-tender, supple Respiratory: chest non-tender, lungs clear, normal breath sounds, no respiratory distress, no accessory muscle use Cardiovascular: regular rate, rhythm, no murmur Gastrointestinal: soft, no organomegaly, no pulsatile mass, guarding (voluntary), tenderness (RUQ), hernia (umbilical) Rectal: deferred Back: no CVA tenderness, no vertebral tenderness Extremities: normal range of motion, non-tender, normal inspection, no pedal edema, no calf tenderness Neurologic/Psychiatric: 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 as tested, no motor/sensory deficits, alert, normal mood/affect, oriented x 3 Skin: normal color, warm/dry Lymphatic: no adenopathy (neck, axilla or groin) Data Review Labs Laboratory Tests 12/07/20 22:37: White Blood Count 7.5, Red Blood Count 4.26L, Hemoglobin 12.7L, Hematocrit 38L, Mean Corpuscular Volume 90, Mean Corpuscular Hemoglobin 30, Mean Corpuscular Hemoglobin Concent 33, Red Cell Distribution Width 12.6, Platelet Count 253, Mean Platelet Volume 9.5, Immature Granulocyte % (Auto) 0, Neutrophils (%) (Auto) 56, Lymphocytes (%) (Auto) 28, Monocytes (%) (Auto) 12, Eosinophils (%) (Auto) 3, Basophils (%) (Auto) 1, Neutrophils # (Auto) 4.2, Lymphocytes # (Auto) 2.1, Monocytes # (Auto) 0.9, Eosinophils # (Auto) 0.2, Basophils # (Auto) 0.1, Immature Granulocyte # (Auto) 0.0, Prothrombin Time 14.8H, INR Comment 1.1, Activated Partial Thromboplast Time 31, Sodium Level 137, Potassium Level 4.0, Chloride Level 101, Carbon Dioxide Level 29, Anion Gap 7, Blood Urea Nitrogen 10, Creatinine 0.96, Estimat Glomerular Filtration Rate 97, BUN/Creatinine Ratio 10, Glucose Level 119H, Calcium Level 9.5, Corrected Calcium 9.5, Total Bilirubin 0.3, Aspartate Amino Transf (AST/SGOT) 16, Alanine Aminotransferase (ALT/SGPT) 15, Alkaline Phosphatase 80, Total Protein 7.5, Albumin 4.0, Lipase 12 12/08/20 00:10: Urine Color YELLOW, Urine Clarity CLEAR, Urine pH 7.0, Urine Specific [place] 1.010L, Urine Protein NEGATIVE, Urine Glucose (UA) NEGATIVE, Urine Ketones NEGATIVE, Urine Nitrite NEGATIVE, Urine Bilirubin NEGATIVE, Urine Urobilinogen 0.2, Urine Leukocyte Esterase NEGATIVE, Urine RBC (Auto) NEGATIVE, Urine RBC 2- 5H, Urine WBC NONE, Urine Squamous Epithelial Cells 2-5, Urine Crystals NONE, Urine Bacteria NEGATIVE, Urine Casts NONE, Urine Mucus NEGATIVE, Urine Culture Indicated NO 12/08/20 05:32: White Blood Count 5.7, Red Blood Count 3.85L, Hemoglobin 11.4L, Hematocrit 35L, Mean Corpuscular Volume 91, Mean Corpuscular Hemoglobin 30, Mean Corpuscular Hemoglobin Concent 33, Red Cell Distribution Width 12.6, Platelet Count 214, Mean Platelet Volume 9.7, Immature Granulocyte % (Auto) 0, Neutrophils (%) (Auto) 54, Lymphocytes (%) (Auto) 29, Monocytes (%) (Auto) 13H, Eosinophils (%) (Auto) 4, Basophils (%) (Auto) 1, Neutrophils # (Auto) 3.1, Lymphocytes # (Auto) 1.6, Monocytes # (Auto) 0.7, Eosinophils # (Auto) 0.2, Basophils # (Auto) 0.0, Immature Granulocyte # (Auto) 0.0, Sodium Level 141, Potassium Level 4.0, Chloride Level 104, Carbon Dioxide Level 26, Anion Gap 11, Blood Urea Nitrogen 10, Creatinine 0.80, Estimat Glomerular Filtration Rate 119, BUN/Creatinine Ratio 13, Glucose Level 106H, Calcium Level 8.7, Corrected Calcium 9.2, Total Bilirubin 0.4, Aspartate Amino Transf (AST/SGOT) 17, Alanine Aminotransferase (ALT/SGPT) 14, Alkaline Phosphatase 62, Total Protein 6.3L, Albumin 3.4 Radiology Date of Exam:12/07/20 CT CHEST/ABDOMEN/PELVIS W PROCEDURE: CT chest, abdomen and pelvis with contrast. TECHNIQUE: Multiple contiguous axial images were obtained through the chest, abdomen, and pelvis after the administration of intravenous contrast. Auto Exposure Controls were utilized during the CT exam to meet ALARA standards for radiation dose reduction. INDICATION: Hemoptysis and right upper quadrant abdominal pain. CT CHEST: There is mild linear atelectasis and/or scarring in the visualized lung bases. There is no pleural or pericardial fluid. No pathologic adenopathy is identified. There is enlargement of the left lobe of the thyroid gland likely related to goiter. IMPRESSION: Dependent atelectasis and/or scarring in the visualized lung bases with probable left lobe thyroid goiter. CT ABDOMEN AND PELVIS: Comparison: 06/23/2019. No focal hepatic abnormality is identified. There is heterogeneous density within the lumen of the gallbladder with suggestion of gallbladder wall thickening. There may be mild pericholecystic inflammation and cholecystitis is not excluded. Extrahepatic ducts are mildly enlarged. This could be related to previous stone passage. No pancreatic or adrenal gland lesion is identified. There is a small hiatal hernia. Spleen is unremarkable. Several cysts are seen in the upper poles of the kidneys without definite solid renal mass or hydronephrosis. No free fluid is seen within the abdomen or pelvis. There is no evidence of appendiceal inflammation. Unopacified bladder is unremarkable in appearance. There is localized L4-L5 degenerative facet arthropathy with degenerative findings also present at the L5-S1 level. IMPRESSION: 1. Abnormal appearance of gallbladder which may reflect acute cholecystitis and clinical correlation is recommended. This could be further assessed with ultrasonography, if warranted. 2. Otherwise, no acute abnormality is seen within the abdomen or pelvis. Dictated by: Dictated on workstation # [id number] Dict: 12/08/20 0017 Trans: 12/08/2029 [facility] [id number] Interpreted by: RYAN SANTIAGO MD Electronically signed by: RYAN SANTIAGO MD 12/08/2029 Assessment/Plan Assessment/Plan Assessment/Plan Acute Cholecystitis/Cholelithiasis HTN Obesity Plan is NPO, IV fluid, pain control, anti-emetics as needed. Pt appears to have acute cholecystitis and when I reviewed the CT noted an enlarged CBD. I think pt would benefit from Lap corie with IOC, possible open. I discussed the procedure with the pt; risks and complications not limited to pain, bleeding, infection, scar, damage to bowel or bile duct and need for further procedure. Will get consent, all questions answered to his satisfaction. We will take him to the OR this am; he may be able to go home if everything goes well. CHIKIS FERREIAR DO Dec 08, 2020 09:29
[2020-12-08] MEDS: LACTATED RINGERS 1,000 ML IV PRN ×2 (10:01→11:15)
[2020-12-08] MEDS ORDERED: ROCURONIUM 10 MG/ML 5 ML SYRINGE IV ONE ×2 (10:17→11:28)
[2020-12-08] MEDS ORDERED: proPOfol 200 MG/20 ML (DIPRIVAN) VIAL IV ONE (10:17)
[2020-12-08] MEDS ORDERED: LIDOCAINE PF 2% 5 ML (XYLOCAINE) VIAL ONE (10:17)
[2020-12-08] MEDS ORDERED: MIDAZOLAM 2 MG/2 ML (VERSED) VIAL ONE (10:17)
[2020-12-08] MEDS ORDERED: fentaNYL INJ 100 MCG/2 ML AMP ONE ×2 (10:17→12:37)
[2020-12-08] MEDS ORDERED: SEVOFLURANE (ULTANE) 15 ML INHAL SOLN ONE ×2 (10:17→12:06)
[2020-12-08] MEDS ORDERED: ONDANSETRON 4 MG/2 ML (SDV) Z0FRAN ONE ×2 (10:17→12:36)
[2020-12-08] MEDS ORDERED: IOHEXOL 300 MG/ML 30 ML (OMNIPAQUE 300) VIAL INJ ONE (10:45)
--- NOTE | 2020-12-08 11:56 | Diagnostic Imaging Report ---
INDICATION: Fluoroscopy for intraoperative cholangiogram. Fluoroscopy was provided in the OR during intraoperative cholangiogram. 30 seconds of fluoroscopic time was utilized. A single image was obtained showing contrast in the common bile duct with contrast passing into the duodenum. No definite filling defect is seen. IMPRESSION: Fluoroscopy during intraoperative cholangiogram. Dictated by: Dictated on workstation # [id number]
[2020-12-08] MEDS ORDERED: NEOSTIGMINE 3 MG/3 ML VIAL ONE (12:08)
[2020-12-08] MEDS ORDERED: GLYCOPYRROLATE 0.2 MG/ML (ROBINUL) 2 ML VIAL ONE (12:09)
--- NOTE | 2020-12-08 12:21 | History & Physical-Hospitalist ---
History of Present Illness HPI/Chief Complaint Deshawn Aguilar is a 60 year old male with PMH HTN, RENU, obesity, who presented with right upper quadrant pain. He is continuing to have pain. He denies nausea and vomiting. He denies diarrhea. He denies fevers. He was having a bloody nose yesterday. He has not had any bleeding since that time. He said he was told he h ad gallstones in the past. He does not use tobacco, alcohol, or illicit drugs. Source: patient Exam Limitations: no limitations Date Seen 12/08/20 Time Seen by a Provider: 07:35 Attending Physician Cierra Scherer MD PCP Varinder Yeung MD Referring Physician Date of Admission Dec 08, 2020 at 02:50 Home Medications & Allergies Home Medications Reviewed patient Home Medication Reconciliation performed by pharmacy medication reconciliations cardiac catheterization technician and/or nursing. Patients Allergies have been reviewed. Allergies Allergies Coded Allergies morphine (Verified Allergy, Intermediate, ITCHING, 12/21/15) Past Ucifhsv-Mrjdwc-Hzleeq Hx Patient Social History Tobacco Use?: No Smoking Status: Former Smoker (states he smoked at least 1ppd and quit just about 10 years ago) Use of E-Cig and/or Vaping dev: No Substance use?: No Alcohol Use?: Yes Alcohol Frequency: Once in a while Pt feels they are or have been: No Immunizations Up To Date Second COVID19 Vaccination Frederic: OCTOBER 2020 Seasonal Allergies Seasonal Allergies: No Current Status Advance Directives: Yes Communicates: Verbally Primary Language: Ivorian Preferred Spoken Language: Ivorian Is interpretation needed?: No Sensory deficits: Vision impairment Implanted or Applied Medical D: None Past Medical History Surgeries: Orthopedic Sleep Apnea Hypertension Esophagitis Degenerate Disk Disease, Arthritis, Chronic Back Pain Loss of Vision: Denies Hearing Impairment: Denies Blood Disorders: No Family Medical History Heart Disease, Diabetes, Hypertension Review of Systems Constitutional: no symptoms reported EENTM: no symptoms reported Respiratory: no symptoms reported Cardiovascular: no symptoms reported Gastrointestinal: abdominal pain Genitourinary: no symptoms reported Musculoskeletal: no symptoms reported Skin: no symptoms reported Psychiatric/Neurological: No Symptoms Reported Physical Exam Physical Exam Vital Signs Vital Signs - First Documented 12/07/20 12/08/20 22:28 04:51 Temp 36.5 Pulse 80 Resp 18 B/P (MAP) 147/85 (105) Pulse Ox 95 O2 Delivery Room Air FiO2 21 Capillary Refill : Less Than 3 Seconds Height, Weight, BMI Height: 5'8.00" Weight: 226lbs. 0.0oz. [id number]; 37.55 BMI Method: General Appearance: No Apparent Distress, Obese HEENT: PERRL/EOMI, Pharynx Normal Neck: Normal Inspection, Supple Respiratory: Lungs Clear, Normal Breath Sounds, No Respiratory Distress Cardiovascular: Regular Rate, Rhythm, No Edema, No Murmur Gastrointestinal: Normal Bowel Sounds, Soft; No Distended, No Guarding; Tenderness Extremity: Normal Inspection, Non Tender, No Pedal Edema Neurologic/Psychiatric: Alert, Oriented x3, No Motor/Sensory Deficits, Normal Mood/Affect Skin: Normal Color, Warm/Dry Results Results/Procedures Labs Laboratory Tests 12/07/20 22:37 12/08/20 05:32 Patient resulted labs reviewed. Imaging: Reviewed Imaging Report Assessment/Plan Admission Diagnosis Acute cholecystitis Admission Status: Observation Assessment and Plan Acute cholecytitis Dr. Luis following Planning for laparoscopic cholecystectomy today NPO HTN GERD RENU Continue home meds and CPAP after surgery Diagnosis/Problems Diagnosis/Problems (1) Acute cholecystitis Status: Acute CIERRA SCHERER MD Dec 08, 2020 12:21
--- NOTE | 2020-12-08 12:33 | Progress Note-Post Operative ---
Post-Operative Progess Note Surgeon (s)/Livestock Yard Attendant (s) Surgeon CHIKIS FERREIRA DO Livestock Yard Attendant: none Pre-Operative Diagnosis Acute Cholecystitis with Cholelithiasis Post-Operative Diagnosis same pending path Procedure & Operative Findings Date of Procedure 12/08/20 Procedure Performed/Findings PROCEDURE: Laparoscopic cholecystectomy with intraoperative cholangiogram. COMPLICATIONS: None. PROCEDURE: The patient was taken to the operating suite and was prepped and draped in sterile fashion. A surgical pause was performed. Just superior to the umbilicus, a 12 mm incision was made. Dissection was taken down to the fascia, which was then scored and grasped with a Rajan and the abdomen was then entered. A 0 Vicryl suture was placed in a [id number] fashion and a Manzo trocar was placed and secured. Pneumoperitoneum was achieved. A 5mm trochar place in the subxyphoid and 2 in the right upper quadrant. The gallbladder could not be seen it was behind very adhered omentum right up onto the liver. Started carefully taking this down with [place] forceps and bovie cautery. There was some bleeding so I switched to the ligasure to come across and coagulate the tissue. I was abelt to then grasp the fundus and elevate it in the superior direction. Then continued freeing it up until I could grasp down at Mohr's pouch. This dissection took over an hour to just free everything up so I could see the cystic duct and cystic artery. I started to dissect them out. Clips were placed on the artery first, because it was in front of the duct; 1 proximal and 2 distal. Able to get around the cystic duct and then placed a clip on the distal portion of the cystic duct which was then partially transected. An arrow catheter was inserted into the duct. The cholangiogram was then performed. No filing defects and contrast made its way into the duodenum. Catheter removed. Clips were placed on proximal portion of the cystic duct and then the duct and artery were transected. Hook cautery was used to dissect the gallbladder from the gallbladder fossa; which also took a long while and did get into the gallbladder. Finally achieving hemostasis; the gallbladder was placed in an Endobag along with 3 large stones and removed through the 12 mm trocar site. The abdomen was then reinspected. Copious amounts of irrigation were used to irrigate the abdomen and there were no signs of active bleeding. Hemostasis had been achieved. The 12 mm fascial defect was then closed with 0 Vicryl suture that had been placed in a [id number] fashion. The abdomen was then desufflated, the trocars were removed. The abdomen was then washed and dried. The skin was then closed using 4-0 Monocryl in a subcuticular fashion. The abdomen was washed and dried and Skin Affix was place over incisions. Patient tolerated the procedure well without any complications and was taken to the recovery room in stable condition. Anesthesia Type GET Estimated Blood Loss Estimated blood loss (mL): appx 20ml Specimens/Packing Specimens Removed GB and contents CHIKIS FERREIRA DO Dec 08, 2020 12:33
--- NOTE | 2020-12-08 12:38 | Discharge Inst-Surgical ---
Discharge Inst-Surgical Depart Medication/Instructions New, Converted or Re-Newed RX: Other (use home meds) Patient Instructions Follow up Appt: Make appointment for 1 week. [phone] Instructions: No lifting greater than 20 pounds. No strenuous activity. May shower in 24 hours, no tub bath or soaking. Use incentive spirometer at home as directed. No Smoking Skin/Wound Care: May remove bandages in am. You need to leave the Dermabond on incision it will fall off on it's own. Symptoms to Report: Appetite Changes, Extremity Discoloration, Numbness/Tingling, Swelling Increased, Bleeding Excessive, Eyesight Changes, Pain Increased, Urine Color Change, Constipation(Persistent), Fever over 101 degree F, Pain/Pressure in chest, Urinating Difficulty, Cough Up/Vomit Blood, Heart Beat Irreg/Pounding, Pain/Pressure in jaw, Cramps in feet or legs, Lightheadedness, Pain/Pressure in shoulder, Diarrhea(Persistent), Memory Changes Suddenly, Questions/Concerns, Weight gain consecutive days, Dizziness/Fainting, Nausea/Vomiting, Shortness of Breath, Weight gain over 2 pounds If questions or concerns contact your physician Or seek help at emergency department. Activity Activity as Tolerated: Yes Activity Instructions: Avoid Stress to Incision Driving Instructions: No Driving/Refer to Diet Discharge Diet: Avoid Fatty Foods, Low Fat/Low Cholesterol Diet After 24 Hours: Clear Liquid if Nauseous If Any Problems/Questions/Issu: Contact Your Physician, Go to Emergency Room Skin/Wound Care Infection Signs and Symptoms: Increased Redness, Foul Odor of Wound, Increased Drainage, Skin Itchy or Has a Rash, Increased Swelling, Temperature Above 101 F Bathing Instructions: Shower Stitches/[place]/Dermabond Dis: Dermabond Ice Pack: Ice On and Off Site (as needed for pain at incision sites) CHIKIS FERREIRA DO Dec 08, 2020 12:37
[2020-12-08] MEDS ORDERED: fentaNYL INJ 100 MCG/2 ML AMP IVP ONE (12:45)
[2020-12-08] MEDS ORDERED: ONDANSETRON 4 MG/2 ML (SDV) Z0FRAN IVP PRN (12:45)
[2020-12-08] MEDS ORDERED: ONDANSETRON 4 MG/2 ML (SDV) Z0FRAN IVP ONE (12:45)
--- NOTE | 2020-12-08 13:32 | Anesthesia-General Post-Op ---
General Patient Condition Mental Status/LOC: Same as Preop Cardiovascular: Satisfactory Nausea/Vomiting: Absent Respiratory: Satisfactory Pain: Controlled Complications: Absent Post Op Complications Complications None Follow Up Care/Instructions Patient Instructions None needed. Anesthesia/Patient Condition Patient Condition Patient is doing well, no complaints, stable vital signs, no apparent adverse anesthesia problems. No complications reported per nursing. JORDAN SUERO CRNA Dec 08, 2020 13:32
== END 2020-12-08 17:30 | disposition home or self-care (01) ==
LOC: EDUNIT# 22:20 → ER FS 22:21 → SDC 22:22 → 4TH 22:22 → UNDOADMOB 12-08 02:50 → SDC 12-08 17:30 → UNDODISOB 12-08 17:30
PROVIDERS: ATTEND Internal Medicine
DX: K80.12 Calculus of gallbladder with acute and chronic cholecystitis without obstruction (principal); K44.9 Diaphragmatic hernia without obstruction or gangrene; K21.00 Gastro-esophageal reflux disease with esophagitis, without bleeding; G47.30 Sleep apnea, unspecified; I10 Essential (primary) hypertension; M19.90 Unspecified osteoarthritis, unspecified site; G89.29 Other chronic pain; M54.9 Dorsalgia, unspecified; E66.9 Obesity, unspecified; G47.33 Obstructive sleep apnea (adult) (pediatric); Z99.89 Dependence on other enabling machines and devices; Z79.891 Long term (current) use of opiate analgesic; Z79.899 Other long term (current) drug therapy; Z87.891 Personal history of nicotine dependence; Z83.3 Family history of diabetes mellitus
CPT/HCPCS: 36415; 71260; 74177; 76000; 80053; 81000; 83690; 85025; 85610; 85730; 87081; 94640; 96361; 96374; 96375

== ENCOUNTER 2020-12-24 05:41 | Outpatient (CLI) | payer MEDICARE, MEDICAID ==
[~2020-12-24] VITALS: Ht 172.7 cm; Wt 112.0 kg
== END 2020-12-24 16:27 | disposition home or self-care (01) ==
LOC: PREOP 05:41
PROVIDERS: ATTEND Surgery
DX: Z01.818 Encounter for other preprocedural examination (principal)

== ENCOUNTER → 2020-12-28 | Outpatient (CLI) | payer MEDICARE, MEDICAID | LOC: LAB FS 10:00 | PROVIDERS: ATTEND Surgery | DX: Z01.812 Encounter for preprocedural laboratory examination (principal); K21.9 Gastro-esophageal reflux disease without esophagitis; Z20.822 Contact with and (suspected) exposure to COVID-19 | CPT/HCPCS: 87635 ==

== ENCOUNTER 2020-12-31 08:06 | Day surgery (SDC) | payer MEDICARE, MEDICAID ==
[~2020-12-31] VITALS: Ht 172.7 cm; Wt 112.0 kg
[2020-12-31 08:15] VITALS: BP 155/99
[2020-12-31] MEDS ORDERED: LACTATED RINGERS 1,000 ML IV STA (08:18)
[2020-12-31] MEDS ORDERED: HURRICAINE EXT TUBE (BENZOCAINE) XX PRN (08:30)
--- NOTE | 2020-12-31 09:17 | Progress Note-Pre Operative ---
Pre-Operative Progress Note H&P Reviewed The H&P was reviewed, patient examined and no changes noted. Time Seen by Provider: 09:12 Date H&P Reviewed: Dec 31, 2020 Time H&P Reviewed: 09:12 Pre-Operative Diagnosis: Hemoptysis, CHIKIS OLSON DO Dec 31, 2020 09:17
[2020-12-31] MEDS ORDERED: proPOfol 200 MG/20 ML (DIPRIVAN) VIAL IV ONE (10:02)
[2020-12-31] MEDS ORDERED: MIDAZOLAM 2 MG/2 ML (VERSED) VIAL ONE (10:02)
[2020-12-31 10:20] VITALS: BP 123/80
--- NOTE | 2020-12-31 10:24 | Progress Note-Post Operative ---
Post-Operative Progess Note Surgeon (s)/Dock Hand (s) Surgeon CHIKIS FERREIRA DO Dock Hand: none Pre-Operative Diagnosis Hemoptysis, GERD Post-Operative Diagnosis Duodenal ulcer Gastritis Hiatal hernia Procedure & Operative Findings Date of Procedure 12/31/20 Procedure Performed/Findings EGD with bx PROCEDURE NOTE: After informed consent was obtained, the patient was brought to the endoscopy suite, placed in bed in left lateral decubitus position. He was administered IV sedation by the INSTRUCTOR WATCH ASSEMBLY who then monitored vitals the entire time, heart rate, blood pressure and pulse ox and the scope was inserted down the mouth, past the vocal chords (which looked good), nothing seen behind the valecula and down the esophagus into the stomach. On the way down, noted some mild esophagitis, took a picture, pushed into the stomach, pushed past the antrum into the duodenum. Duodenum saw what looked like an early ulcer and elected to do a biopsy of this spot. Pulled back, noted mild Gastritis and did a biopsy of antrum. Then retroflexed the scope and saw a moderate hiatal hernia, took a picture of this and then pulled the scope into the GE junction, took another picture of the hiatal hernia and then did a biopsy of the GE junction. Pushed the scope back into the stomach, suctioned all the air out of the stomach. At this point pulled the scope up the esophagus and out the mouth. The patient tolerated the procedure, and he recovered in endoscopy suite. Anesthesia Type IV sedation by INSTRUCTOR WATCH ASSEMBLY Estimated Blood Loss Estimated blood loss (mL): scant Specimens/Packing Specimens Removed duodenal bx antral bx GE jxn bx CHIKIS FERREIRA DO Dec 31, 2020 10:24
[2020-12-31 10:25] VITALS: BP 113/70
--- NOTE | 2020-12-31 10:25 | Endoscopy Discharge Instruct ---
Endo Procedure/Findings Findings 1.: Duodenal Ulcer 2.: Gastritis 3.: Hiatal Hernia Discharge Instructions - Activity: You might feel a little sleepy until tomorrow. This is due to the medicine you received to relax you. Until tomorrow, you should: NOT drive a car, operate machinery or power tools. NOT drink any alcoholic beverages. NOT make any important decisions or sign importortant papers. Do not return to work until tomorrow, unless otherwise instructed. Resume previous activities tomorrow. Diet: Start by taking liquids. If you tolerate liquids, advance to solid food. 1.: EGD in 3 years Notify Physician - If you experience excessive bleeding, unusual abdominal pain, fever, or chest pain, contact your doctor immediately. CHIKIS FERREIRA DO Dec 31, 2020 10:25
[2020-12-31 10:30] VITALS: BP 113/70
[2020-12-31 10:55] VITALS: BP 113/70
--- NOTE | 2020-12-31 11:20 | Anesthesia-General Post-Op ---
MAC Patient Condition Mental Status/LOC: Same as Preop Cardiovascular: Satisfactory Nausea/Vomiting: Absent Respiratory: Satisfactory Pain: Controlled Complications: Absent Post Op Complications Complications None Follow Up Care/Instructions Patient Instructions None needed. Anesthesiology Discharge Order Discharge Order Patient is doing well, no complaints, stable vital signs, no apparent adverse anesthesia problems. No complications reported per nursing. ELIAZAR GOODSON CRNA Dec 31, 2020 11:20
== END 2020-12-31 10:59 | disposition home or self-care (01) ==
LOC: ENDO 08:06
PROVIDERS: ATTEND Surgery
DX: K21.00 Gastro-esophageal reflux disease with esophagitis, without bleeding (principal); K29.70 Gastritis, unspecified, without bleeding; K26.9 Duodenal ulcer, unspecified as acute or chronic, without hemorrhage or perforation; K44.9 Diaphragmatic hernia without obstruction or gangrene; I10 Essential (primary) hypertension; G47.33 Obstructive sleep apnea (adult) (pediatric); E66.9 Obesity, unspecified; Z68.37 Body mass index [BMI] 37.0-37.9, adult; Z79.899 Other long term (current) drug therapy; Z87.891 Personal history of nicotine dependence; Z79.2 Long term (current) use of antibiotics; Z79.891 Long term (current) use of opiate analgesic; Z98.890 Other specified postprocedural states; Z90.49 Acquired absence of other specified parts of digestive tract
CPT/HCPCS: 88305

== ENCOUNTER 2021-01-28 12:24 | Emergency (ER) | payer OTHER, MEDICARE, MEDICAID ==
[~2021-01-28] VITALS: Ht 172.7 cm; Wt 113.0 kg
[2021-01-28 12:31] VITALS: BP 152/93
[2021-01-28] MEDS ORDERED: CYCL10TA9 PO (12:39)
[2021-01-28] MEDS ORDERED: IBUP-1780 PO (12:39)
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
[2021-01-28] MEDS ORDERED: KETOROLAC 60 MG/2 ML VIAL ONE (12:44)
[2021-01-28] MEDS ORDERED: KETOROLAC 60 MG/2 ML VIAL IM ONE (12:45)
== END 2021-01-28 12:59 | disposition home or self-care (01) ==
LOC: EDUNIT# 12:24 → ER FS 12:27
DX: S39.012A Strain of muscle, fascia and tendon of lower back, initial encounter (principal); I10 Essential (primary) hypertension; G89.29 Other chronic pain; G47.33 Obstructive sleep apnea (adult) (pediatric); Z99.89 Dependence on other enabling machines and devices; Z88.5 Allergy status to narcotic agent; Z79.1 Long term (current) use of non-steroidal anti-inflammatories (NSAID); Z79.891 Long term (current) use of opiate analgesic; Z79.899 Other long term (current) drug therapy; V89.2XXA Person injured in unspecified motor-vehicle accident, traffic, initial encounter
CPT/HCPCS: 99284

== ENCOUNTER → 2021-02-12 | Outpatient (CLI) | payer MEDICARE, MEDICAID ==
[~2021-02-12] MED LIST changes: +CYCL10TA9 PO
--- NOTE | 2021-02-12 08:59 | Diagnostic Imaging Report ---
PROCEDURE: MRI left upper extremity without contrast. TECHNIQUE: Multiplanar, multisequence non contrast-enhanced MRI of the left upper extremity was accomplished. INDICATION: Left shoulder pain, symptoms for years COMPARISON: None FINDINGS: There is motion artifact on multiple sequences resulting in suboptimal evaluation. No acute fracture is seen in the left shoulder. Alignment appears normal. There is no joint effusion. There is severe degenerative change in the acromioclavicular joint. The supraspinatus tendon demonstrates mild tendinosis with thinning distally and small high-grade partial thickness tear measuring about 1 cm in width. There may be small full-thickness component measuring 4 mm. The infraspinatus tendon demonstrates mild tendinosis. The teres minor tendon is intact. The subscapularis tendon appears intact. The long head of the biceps tendon is normal in course and signal. The glenoid labrum is suboptimally evaluated in the absence of intra-articular contrast. No para labral cyst is seen. The acromion has a curved undersurface. There is a small amount of fluid in the subacromial subdeltoid bursa. The coracoclavicular and coracoacromial ligaments are intact. No muscular atrophy is seen. Soft tissues about the left shoulder otherwise unremarkable. IMPRESSION: 1. Small high-grade partial thickness tear of the supraspinatus tendon with a very small full-thickness component. Mild tendinosis in the infraspinatus tendon. 2. Severe degenerative changes in the acromioclavicular joint. 3. Mild subacromial subdeltoid bursitis. Dictated by: Dictated on workstation # [id number]
== END ==
LOC: RAD 08:00
PROVIDERS: ATTEND Family Medicine
DX: S46.912A Strain of unspecified muscle, fascia and tendon at shoulder and upper arm level, left arm, initial encounter (principal); M67.814 Other specified disorders of tendon, left shoulder; M19.012 Primary osteoarthritis, left shoulder; M75.52 Bursitis of left shoulder; M25.511 Pain in right shoulder; X58.XXXA Exposure to other specified factors, initial encounter
CPT/HCPCS: 73221

== ENCOUNTER 2021-07-24 17:49 | Emergency (ER) | payer MEDICARE, MEDICAID ==
[~2021-07-24] VITALS: Ht 172 cm; Wt 113.0 kg
[~2021-07-24 17:49] MED LIST changes: +CYCL10TA25 PO; -CYCL10TA9 PO
[2021-07-24 18:22] VITALS: BP 144/76
[2021-07-24] MEDS ORDERED: AZIT250T12 PO (18:22)
--- NOTE | 2021-07-24 18:22 | ED Cough/URI ---
General Chief Complaint: Cough/Cold/Flu Symptoms Stated Complaint: COUGHING BLOOD,HEADACHE Nursing Triage Note: PT REPORTS "HE CAUGHT A SINUS INFECTION FROM HIS GRANDDAUGHTER 2 DAYS AGO. COUGH, NASAL CONGESTION, AND SORE THROAT. Source: patient Exam Limitations: no limitations History of Present Illness Date Seen by Provider: Jul 24, 2021 Time Seen by Provider: 17:57 Initial Comments 61-year-old male with no significant past medical history coming in due to significant nasal congestion, cough, sore throat. Granddaughter has the same, has had this for several days now. No fevers that he knows of. Does have some tenderness around his sinuses he notices. Otherwise denying any chest pain, shortness of breath, abdominal pain, nausea, vomiting, diarrhea, or any other concerns Allergies and Home Medications Allergies Coded Allergies: morphine (Verified Allergy, Intermediate, ITCHING, 12/21/15) Patient Home Medication List Home Medication List Reviewed: Yes Amlodipine Besylate (Amlodipine Besylate) 5 Mg Tablet, 5 MG PO DAILY, (Reported) Entered as Reported by: NICKI HUBER on 12/21/15 0942 Cetirizine HCl (Cetirizine HCl) 10 Mg Tablet, 10 MG PO DAILY, (Reported) Entered as Reported by: NICKI HUBER on 12/21/15 0942 Cyclobenzaprine HCl (Cyclobenzaprine HCl) 10 Mg Tablet, 10 MG PO Q8H PRN for SPASMS Prescribed by: JEFF PIERRE on 01/28/21 1239 Ibuprofen (Ibuprofen) 800 Mg Tablet, 800 MG PO Q8H PRN for PAIN, (Reported) Entered as Reported by: NICKI HUBER on 12/21/15 0942 Ibuprofen (Ibuprofen) 800 Mg Tablet, 800 MG PO Q8H PRN for PAIN Prescribed by: JEFF PIERRE on 01/28/21 1239 Oxycodone HCl (Oxycontin) 60 Mg Tab.er.12h, 60 MG PO Q12H, (Reported) Entered as Reported by: NICKI HUBER on 12/21/15 0942 Pantoprazole Sodium (Protonix) 40 Mg Tablet.dr, 40 MG PO DAILY Prescribed by: DALLIN CHACKO [facility] on 01/01/16 1350 Review of Systems Review of Systems Constitutional: No chills, No fever EENTM: nose congestion; No blurred vision Respiratory: cough Cardiovascular: no symptoms reported Gastrointestinal: no symptoms reported Genitourinary: no symptoms reported Musculoskeletal: no symptoms reported Skin: no symptoms reported Psychiatric/Neurological: No Symptoms Reported Hematologic/Lymphatic: No Symptoms Reported Immunological/Allergic: no symptoms reported All Other Systems Reviewed Negative Unless Noted: Yes Past Mkfjiza-Dandty-Puizbp Hx Patient Social History Tobacco Use?: No Use of E-Cig and/or Vaping dev: No Substance use?: No Alcohol Use?: No Pt feels they are or have been: No Immunizations Up To Date First/Initial COVID19 Vaccinat: 10/29 Second COVID19 Vaccination Frederic: 11/28 Third COVID19 Vaccination Date: 10/29 Seasonal Allergies Seasonal Allergies: No Past Medical History Surgery/Hospitalization HX: THYROIDECTOMY, Surgeries: Yes (Feet reconstructed) Gallbladder, Orthopedic, Thyroidectomy Respiratory: Yes (RENU) Sleep Apnea Currently Using CPAP: Yes Currently Using BIPAP: No Cardiac: Yes Hypertension Neurological: No Sexually Transmitted Disease: No HIV/AIDS: No Genitourinary: No Gastrointestinal: Yes (Gastritis) Esophagitis Musculoskeletal: Yes Degenerate Disk Disease, Arthritis, Chronic Back Pain Endocrine: No HEENT: No Loss of Vision: Denies Hearing Impairment: Denies Cancer: No Psychosocial: No Integumentary: No Blood Disorders: No Family Medical History Heart Disease, Diabetes, Hypertension Physical Exam Vital Signs - First Documented 07/24/21 17:52 Temp 36.3 Pulse 87 Resp 16 B/P (MAP) 144/76 (98) Pulse Ox 98 O2 Delivery Room Air Capillary Refill : Less Than 3 Seconds Height: 5'8.00" Weight: 226lbs. 0.0oz. 102.858969pu; 38.00 BMI Method: General Appearance: WD/WN, no apparent distress Eyes: Bilateral Eye Normal Inspection HEENT: PERRL/EOMI, TMs normal, pharynx normal, other (sinus pressure/pain) Neck: non-tender, full range of motion, supple, normal inspection Respiratory: chest non-tender, lungs clear, normal breath sounds, no respiratory distress, no accessory muscle use Cardiovascular: regular rate, rhythm, no edema, no murmur Gastrointestinal: normal bowel sounds, non tender, soft; No distended, No guarding Extremities: normal range of motion, non-tender, normal inspection, no pedal edema, no calf tenderness, normal capillary refill Neurologic/Psychiatric: alert, normal mood/affect Skin: normal color, warm/dry Lymphatic: no adenopathy Progress/Results/Core Measures Suspected Sepsis SIRS Temperature: Pulse: 87 Respiratory Rate: 16 Blood Pressure 144 /76 Mean: 98 Results/Orders Vital Signs/I&O 07/24/21 17:52 Temp 36.3 Pulse 87 Resp 16 B/P (MAP) 144/76 (98) Pulse Ox 98 O2 Delivery Room Air Capillary Refill : Less Than 3 Seconds Blood Pressure Mean: 98 Progress Note : Progress Note Seen in the emergency department for URI type symptoms. Well-appearing. Stable vitals. Can follow-up with PCP. Departure Impression Primary Impression: Sinus infection Qualified Codes: J01.10 - Acute frontal sinusitis, unspecified Disposition: HOME, SELF-CARE Condition: Stable Departure-Patient Inst. Decision time for Depature: 18:20 Referrals: NORA MACDONALD MD (PCP/Family) Primary Care Physician Patient Instructions: Sinusitis, Adult ED Add. Discharge Instructions: Please follow-up with your regular doctor in the next week if you are not improving. Take [id number] Mucinex to help clear up the mucus. You could alternatively take DayQuil or NyQuil to help with the cough. Scripts Azithromycin (Azithromycin) 250 Mg Tablet 250 MG PO DAILY, #6 TAB TAKE 2 TABLETS ON DAY ONE THEN TAKE 1 TABLET DAILY FOR FOUR MORE DAYS Prov: ANGELA DRAPER MD 07/24/21 ANGELA DRAPER MD Jul 24, 2021 18:22
== END 2021-07-24 18:23 | disposition home or self-care (01) ==
LOC: EDUNIT# 17:49 → ER FS 17:50
DX: J32.9 Chronic sinusitis, unspecified (principal)
CPT/HCPCS: 99283

== ENCOUNTER 2022-04-26 11:03 | Emergency (ER) | payer MEDICARE, MEDICAID ==
[~2022-04-26] VITALS: Ht 172.7 cm; Wt 122.5 kg
[~2022-04-26 11:03] MED LIST changes: +AZIT250T12 PO
--- NOTE | 2022-04-26 11:26 | ED General ---
General Chief Complaint: General Problems/Pain Stated Complaint: DRAIN TUBE FROM SURGERY LEAKING Source of Information: Patient Exam Limitations: No Limitations History of Present Illness Date Seen by Provider: Apr 26, 2022 Time Seen by Provider: 11:10 Initial Comments Patient is a 62-year-old male who is 2 days status post laparotomy with abdominal hernia repair per Dr. Lux at [facility] who presents with bleeding around LISA drain insertion sight. Patient states he was instructed by his surgeon that the drain would be removed on Thursday during his follow-up visit and that if it became loose beforehand that he should pull it. Patient was not comfortable doing this. Patient states he has been active moving around and that the drain may have been caught and tugged on while getting around. Pain is well controlled. Patient has taken oxycodone patient is scheduled for 4 dose at noon. No other symptoms or complaints. Timing/Duration: 4-6 Hours Severity: Mild Modifying Factors: improves with Other Associated Systoms: Other Allergies and Home Medications Allergies Coded Allergies: morphine (Verified Allergy, Intermediate, ITCHING, 12/21/15) Patient Home Medication List Home Medication List Reviewed: Yes Amlodipine Besylate (Amlodipine Besylate) 5 Mg Tablet, 5 MG PO DAILY, (Reported) Entered as Reported by: NICKI HUBER on 12/21/15 09 Azithromycin (Azithromycin) 250 Mg Tablet, 250 MG PO DAILY Prescribed by: ANGELA DRAPER on 07/24/21 182 Cetirizine HCl (Cetirizine HCl) 10 Mg Tablet, 10 MG PO DAILY, (Reported) Entered as Reported by: NICKI HUBER on 12/21/15 0942 Cyclobenzaprine HCl (Cyclobenzaprine HCl) 10 Mg Tablet, 10 MG PO Q8H PRN for SPASMS Prescribed by: JEFF VENCESSTTAMMY on 01/28/21 1239 Ibuprofen (Ibuprofen) 800 Mg Tablet, 800 MG PO Q8H PRN for PAIN, (Reported) Entered as Reported by: NICKI HUBER on 12/21/15 09 Ibuprofen (Ibuprofen) 800 Mg Tablet, 800 MG PO Q8H PRN for PAIN Prescribed by: JEFF VENCESSTTAMMY on 01/28/21 1239 Oxycodone HCl (Oxycontin) 60 Mg Tab.er.12h, 60 MG PO Q12H, (Reported) Entered as Reported by: NICKI HUBER on 12/21/15 0942 Pantoprazole Sodium (Protonix) 40 Mg Tablet.dr, 40 MG PO DAILY Prescribed by: DALLIN FLORES on 01/01/16 1350 Review of Systems Review of Systems Constitutional: see HPI EENTM: see HPI Respiratory: see HPI Cardiovascular: see HPI Gastrointestinal: see HPI Genitourinary: see HPI Musculoskeletal: see HPI Skin: see HPI Psychiatric/Neurological: See HPI Hematologic/Lymphatic: See HPI Immunological/Allergic: see HPI All Other Systems Reviewed Negative Unless Noted: No Past Bqogstz-Ytkmkr-Kpkuzk Hx Patient Social History Tobacco Use?: Yes Immunizations Up To Date First/Initial COVID19 Vaccinat: 10/29 Second COVID19 Vaccination Frederic: 11/28 Third COVID19 Vaccination Date: 10/29 Seasonal Allergies Seasonal Allergies: No Past Medical History Surgery/Hospitalization HX: Recent left shoulder surgery. Surgeries: Yes (Feet reconstructed) Gallbladder, Orthopedic, Thyroidectomy Respiratory: Yes (RENU) Sleep Apnea Currently Using CPAP: Yes Currently Using BIPAP: No Cardiac: Yes Hypertension Neurological: No Sexually Transmitted Disease: No HIV/AIDS: No Genitourinary: No Gastrointestinal: Yes (Gastritis) Esophagitis Musculoskeletal: Yes Degenerate Disk Disease, Arthritis, Chronic Back Pain Endocrine: No HEENT: No Loss of Vision: Denies Hearing Impairment: Denies Cancer: No Psychosocial: No Integumentary: No Blood Disorders: No Family Medical History Heart Disease, Diabetes, Hypertension Physical Exam Vital Signs Capillary Refill : Height, Weight, BMI Height: 5'8.00" Weight: 226lbs. 0.0oz. 102.772959wy; 37.00 BMI Method: General Appearance: No Apparent Distress, WD/WN HEENT: PERRL/EOMI Respiratory: Lungs Clear Cardiovascular: Regular Rate, Rhythm Gastrointestinal: Soft, Other (Abdominal wall laparotomy wound with drain inserted into laparotomy wound with min bright red blood in drain and soaking bandage.) Focused Exam Sepsis Stage: Ruled Out Progress/Results/Core Measures Suspected Sepsis SIRS Temperature: Pulse: Respiratory Rate: Blood Pressure / Mean: Results/Orders Vital Signs/I&O Capillary Refill : Departure Communication (Admissions) Abdominal bandages changed. Drain left in place. Patient instructed to follow post-op instructions and general sx. as scheduled/return precautions reviewed. Patient verbalizes understanding agreement discharge instructions prior to departure peer Impression Primary Impression: Encounter for post surgical wound check Disposition: HOME, SELF-CARE Condition: Stable Departure-Patient Inst. Decision time for Depature: 11:27 Referrals: NORA MACDONALD MD (PCP/Family) Primary Care Physician Patient Instructions: Surgical Wound (DC) Add. Discharge Instructions: You were evaluated in the emergency department for leaking around an abdominal wall drain. Please keep bandages clean changed often as necessary and follow the postoperative instructions provided to you by your surgeon. Follow-up with Dr. Lux in office as scheduled. Continue home pain medications and increase MiraLAX to prevent constipation All discharge instructions reviewed with patient and/or family. Voiced understanding. LEW LUX DO Apr 26, 2022 11:26
[2022-04-26] MEDS ORDERED: KETOROLAC 60 MG/2 ML VIAL IM ONE (11:30)
[2022-04-26] MEDS ORDERED: oxyCODONE/APAP 5/325MG (PERCOCET 5) TABLET PO ONE (11:30)
[2022-04-26 11:41] VITALS: BP 164/94
== END 2022-04-26 11:41 | disposition home or self-care (01) ==
LOC: EDUNIT# 11:03 → ER FS 11:04
DX: Z48.815 Encounter for surgical aftercare following surgery on the digestive system (principal); G47.30 Sleep apnea, unspecified; Z28.311 Partially vaccinated for COVID-19; Z99.89 Dependence on other enabling machines and devices
CPT/HCPCS: 96372; 99284